=== PATIENT | male | born 1960 | race Caucasian/White ===

== ENCOUNTER 2017-06-10 10:30 | Outpatient (RCR) | payer OTHER, SELFPAY | END 2017-06-10 23:59 | LOC: PT 10:30 | PROVIDERS: Family Provider Family Medicine; Visit Provider Orthopaedic Surgery | DX: M75.21 Bicipital tendinitis, right shoulder (principal) | CPT/HCPCS: 97014; 97016; 97110; G0283 ==

== ENCOUNTER 2017-06-10 10:30 | Outpatient (RCR) | payer OTHER, SELFPAY | END 2017-06-10 23:59 | LOC: PT 10:30 | PROVIDERS: Visit Provider Orthopaedic Surgery | DX: M75.21 Bicipital tendinitis, right shoulder (principal) | CPT/HCPCS: 97161 ==

== ENCOUNTER → 2017-08-08 14:44 | Outpatient (CLI) | payer OTHER, SELFPAY ==
--- NOTE | 2017-08-08 | MM_ITS ---
MM Dig mamm BI DX w/CAD, US breast LT complete COMPARISON: None INDICATION: Palpable nodule the left breast ORDERING PHYSICIAN: Slim Gutierrez PATIENT AGE: 57 years TECHNIQUE: Standard images are performed along with nipple profile view of the left breast. Left breast ultrasound with axilla FINDINGS: Initially the ultrasound was performed for the palpable nodule demonstrating increased glandularity. There was some decreased echogenicity in the retroareolar region with increased blood flow. For this reason a mammogram was performed. Bilateral mammogram: Increased density is present in the retroareolar region on the left. This does appear to compress out as fibroglandular tissue consistent with gynecomastia. No discrete retroareolar nodule or mass evident. IMPRESSION: Gynecomastia the left breast no evidence of malignancy. BI-RADS Category: 2 Benign Finding(s) Follow-up as clinically warranted. Negative mammogram negative ultrasound does not exclude the possibility of malignancy. Any palpable nodule should be managed on a clinical basis.
== END ==
PROVIDERS: Family Provider Family Medicine; PCP Family Medicine; Visit Provider Family Medicine
DX: N63.20 Unspecified lump in the left breast, unspecified quadrant (principal); N64.4 Mastodynia
CPT/HCPCS: 76641; 77066

== ENCOUNTER 2017-09-07 21:38 | Observation (INO) | payer OTHER, SELFPAY ==
[2017-09-07 21:39] VITALS: BP 113/73; PULSE 98; RESP 16; TEMP 36.9; O2SAT 100; BMI 26.4
[2017-09-07 21:40] VITALS: BMI 26.4
--- NOTE | 2017-09-07 21:49 | CT_ITS ---
CT head/brain wo con Ordering Physician: Yemi Chisholm MD Patient Age: 57 years: Male HISTORY: ITS.REASON: acting different Mental status change. Patient found on floor difficult to awaken TECHNIQUE: Routine axial CT head without contrast. COMPARISON :No previous studies for comparison FINDINGS No acute intracranial findings. No hemorrhage. No mass. No subdural collection. The ventricles and basal cisterns appear normal. The posterior fossa is unremarkable. Skull is intact and visualized paranasal sinuses clear. Mastoid air cells middle air and IACs unremarkable IMPRESSION: No acute intracranial findings.
[2017-09-07 21:53] LABS: Basophils % 0.4 % (0.1-2.0); Eosinophils # 0.1 K/mm3 (0.0-0.4); Eosinophils % 0.8 % (0.1-12.0); Hemoglobin 13.3 g/dL (14.1-18.0); Lymphocytes # 2.6 K/mm3 (0.7-4.5); Lymphocytes % 39.8 K/mm3 (10-50); Mean Corpuscular Hemoglobin 29.9 pg (27.0-31.2); Mean Corpuscular Volume 87.8 fl (80-94); Mean Platelet Volume 8.2 fl (7.4-10.4); Monocytes # 0.7 K/mm3 (0.1-1.0); Neutrophils # 3.2 K/mm3 (1.8-7.8); Platelet Count 237 K/mm3 (142-424); Red Blood Count 4.44 M/mm3 (4.60-6.20); Red Cell Distribution Width 12.5 % (11.5-17.5); White Blood Count 6.5 K/mm3 (4.8-10.8)
[2017-09-07 22:04] LABS: Acetaminophen 0 ug/mL (10-30); Alanine Aminotransferase 49 U/L (12-78); Albumin Level 3.8 gm/dL (3.4-5.0); Albumin/Globulin Ratio 1.1 (1.1-1.8); Alkaline Phosphatase 82 U/L (46-116); Anion Gap 12.1 mEq/L (5-15); Aspartate Amino Transferase 27 U/L (15-37); Bilirubin,Total 0.3 mg/dL (0.2-1.0); Blood Urea Nitrogen 21 mg/dL (7-18); Calcium 8.7 mg/dL (8.5-10.1); Carbon Dioxide 29 mmol/L (21.0-32.0); Chloride 99 mmol/L (98-107); Creatinine Clearance Estimated 83 mL/min (0-300); Creatinine,Serum 1.25 mg/dL (0.70-1.30); Estimated Glomerular Filt Rate 59 ml/min (>60); GFR (African American) 72 ML/MIN (>60); Globulin 3.6 gm/dl (1.3-3.2); Glucose 115 mg/dL (74-106); Potassium 4.1 mmoL/L (3.5-5.1); Salicylate 2.1 mg/dL (2.8-20.0); Sodium 136 mmol/L (136-145); Total Protein,Serum 7.4 gm/dL (6.4-8.2)
[2017-09-07 22:04] LABS: Microscopic, Urine URINE MICROSCOPIC (MICROSCOPIC)
[2017-09-07 22:08] LABS: Appearance,Urine CLEAR (Clear); Bilirubin,Urine Negative (Negative); Blood, Urine TRACE-L (Negative); Color,Urine YELLOW (Yellow); Glucose,Urine (UA) Negative (Negative); Ketones,Urine TRACE (Negative); Leukocyte Esterase,Urine Negative (Negative); Nitrate,Urine Negative (Negative); Protein,Urine Negative (Negative); Specific Gravity, Urine 1.025 (1.005-1.030); Urobilinogen,Urine 0.2 EU/dl (0.2)
[2017-09-07 22:10] LABS: Amorphous Sediment,Urine Trace /lpf; RBC,Urine Occasional #/hpf (0-3)
[2017-09-07 22:13] LABS: Amphetamine/Metha Screen,Urine Negative ng/mL (<1000); Barbiturates Screen,Urine Negative ng/mL (<200); Benzodiazepines Screen,Urine Negative ng/mL (200); Cannabinoid Screen,Urine Negative ng/mL (<50); Cocaine Screen,Urine Negative ng/g (<300); Methadone Screen,Urine Negative ng/mL (<300); Opiate Screen,Urine Negative ng/mL (<300); Phencyclidine Screen,Urine Negative ng/mL (<25)
--- NOTE | 2017-09-07 23:24 | PC.NURSE ---
Dr Chisholm on with Dr. Hayes.
--- NOTE | 2017-09-07 23:26 | HMH.EDAMS ---
ED Disposition Clinical Impression: Altered mental status Qualifiers: Altered mental status type: unspecified Qualified Code(s): R41.82 - Altered mental status, unspecified Disposition: Admitted As Inpatient Condition on Discharge: Good Time of Disposition: 23:27 - Critical Care Critical Care Time: No Attestation: On 09/07/17, the high probability of a clinically significant, sudden or life threatening deterioration of the following system(s) required my full and direct attention, intervention and personal management. The time I documented below is in addition to time spent performing reported procedures but includes the following listed in this critical care notation. Medical Decision Making - Medical Records Medical records reviewed: Yes: I reviewed the patient's medical records. - Primo Inquiry Pt receiving controlled substance: No Vital Signs: 09/07/17 21:39 09/08/17 00:50 09/08/17 01:10 Temperature 98.4 F 98.4 F 98.3 F Temperature Source Oral Oral Oral Pulse Rate 90 Pulse Rate [Left Radial] 98 H 89 Respiratory Rate 16 16 16 Blood Pressure 122/68 Blood Pressure [Left Arm] 111/74 Blood Pressure [Right Arm] 113/73 Blood Pressure Mean [Left Arm] 86 Blood Pressure Mean [Right Arm] 86 Blood Pressure Source Automatic Cuff Blood Pressure Source [Left Arm] Automatic Cuff Blood Pressure Source [Right Arm] Automatic Cuff Blood Pressure Position Supine Blood Pressure Position [Left Arm] Supine Blood Pressure Position [Right Arm] Supine 02 Sat by Pulse Oximetry 100 95 Oxygen Delivery Method Room Air Room Air Room Air - Lab Data Lab results reviewed: Yes: I reviewed the patient's lab results. Lab Results 09/07/17 21:40: WBC 6.5, RBC 4.44 L, Hgb 13.3 L, Hct 39.0 L, MCV 87.8, MCH 29.9, MCHC 34.0, RDW 12.5, Plt Count 237, MPV 8.2, Neut % (Auto) 49.0, Lymph % (Auto) 39.8, Addison % (Auto) 10.0 H, Eos % (Auto) 0.8, Baso % (Auto) 0.4, Neut # (Auto) 3.2, Lymph # (Auto) 2.6, Addison # (Auto) 0.7, Eos # (Auto) 0.1, Baso # (Auto) 0.0 09/07/17 21:40: Sodium 136, Potassium 4.1, Chloride 99, Carbon Dioxide 29, Anion Gap 12.1, BUN 21 H, Creatinine 1.25, Estimated Creat Clear 83, Estimated GFR 59, Est GFR ( Amer) 72, Glucose 115 H, Calcium 8.7, Total Bilirubin 0.3, AST 27, ALT 49, Alkaline Phosphatase 82, Total Protein 7.4, Albumin 3.8, Globulin 3.6 H, Albumin/Globulin Ratio 1.1, Salicylates 2.1 L, Acetaminophen 0 L 09/07/17 21:55: Urine Color Yellow, Urine Appearance Clear, Urine pH 6.0, Ur Specific [place] 1.025, Urine Protein Negative, Urine Glucose (UA) Negative, Urine Ketones Trace, Urine Blood Trace-l, Urine Nitrate Negative, Urine Bilirubin Negative, Urine Urobilinogen 0.2, Ur Leukocyte Esterase Negative, Urine RBC Occasional, Amorphous Sediment Trace 09/07/17 21:55: Urine Opiates Screen Negative, Ur Barbituates Screen Negative, Ur Phencyclidine Scrn Negative, Ur Amphetamines Screen Negative, U Methamphetamines Scrn Negative, U Benzodiazepines Scrn Negative, Urine Cocaine Screen Negative, U Marijuana (THC) Screen Negative Result diagrams: 09/07/17 21:40 09/07/17 21:40 Orders (Tests/Meds): ED MEDICATIONS Generic Name Dose Route Start Last Admin Trade Name Freq PRN Reason Stop Dose Admin Acetaminophen 500 mg 09/08/17 01:43 Tylenol 500mg Tablet PO 10/08/17 01:42 Q4HP PRN Moderate Pain Atorvastatin Calcium 10 mg 09/08/17 21:00 Lipitor 10mg Tablet PO 10/08/17 20:59 HS CONRADO Lactated Ringer's 1,000 mls @ 125 mls/hr 09/08/17 01:43 09/08/17 01:45 Lactated Ringer's 1000 Ml Bag IV 10/08/17 00:53 125 mls/hr .Q8H CONRADO Administration Ketorolac Tromethamine 30 mg 09/08/17 01:43 09/08/17 01:48 Toradol 30mg/Ml Vial IV 10/08/17 01:42 30 mg Q6H PRN Administration Moderate Pain Non-Formulary Medication 1 tab 09/08/17 09:00 Lisinopril/Hydrochlorothiazide [Lisinopril-Hctz 20-25 Mg Tab] PO 10/08/17 08:59 DAILY CONRADO Non-Formulary
[2017-09-08 00:50] VITALS: BP 122/68; PULSE 90; RESP 16; TEMP 36.9; O2SAT 100
[2017-09-08 01:10] VITALS: BP 111/74; PULSE 89; RESP 16; TEMP 36.8; O2SAT 95; BMI 28.5
--- NOTE | 2017-09-08 03:24 | PC.NURSE ---
C/O CRANE AND TEARFUL ON ADMISSION, TORADOL AND TYLENOL ADMINISTERED PER AUG. PT REPORTS A LITTLE HELP WITH TORADOL PT STATES MY CRANE IS PRETTY BAD STILL. , TYLENOL WAS ADMINISTERED IN ADDITION, WILL REASSESS RELIEF OF CRANE WITH ADMINISTRATION OF TYLENOL. PT REPORTED NOT EATING SINCE 1200, GLUCOSE WAS NOTED 115 PER LAB RESULTS. NEURO CHECK DOCUMENTED PER ORDER. VSS. WILL CONTINUE TO MONITOR.
[2017-09-08 03:45] VITALS: BP 101/72; PULSE 89; RESP 16; TEMP 37; O2SAT 96
--- NOTE | 2017-09-08 05:21 | PC.NURSE ---
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 PT IS TEARFUL AT THIS TIME AND STATING YOU HAVE TO DO SOMETHING. RN PERFORMED NEURO CHECK AT THIS TIME, NO DEFICITS NOTED. PRN PAIN MEDICATIONS ARE NOT AVAILABLE FOR ADMINISTRATION, VSS ON 0400 VS ROUND. PT PROVIDED WITH ICE PACK. RN NOTES VS, LABS, SCANS ARE NORMAL. RN/HOUSE DID NOTE ER REPORT STATING PT TAKING 5 TABS OF SOMA WITHIN A HOUR AND A HALF TIME FRAME, WHEN PRESCRIPTION STATES TO TAKE ONE SOMA TAB TID. PT REPORTS TAKING 3/5 TABS AT 1500 THEN AGAIN TOOK 2/5 TABS AT 1630 FOR BACK SPASMS. PT STATES I HAVE DONE THIS BEFORE BUT DIDN'T HAVE A CRANE LIKE THIS. I JUST FELL ON THE FLOOR COULDN'T GET UP, SO I HAD TO CALL EMS TO HELP. POISON CONTROL NOTIFIED AT 0429, INFORMATION WAS GIVEN TO LESVIA DOMINIQUE. LESVIA DOMINIQUE REPORTED THAT THE SOMA SHOULD BE OUT OF THE PATIENT'S SYSTEM AT THIS TIME. RN WENT TO CHECK ON PT AND NOTED ICE PACK WAS LYING ON THE FLOOR. PT STATED I DON'T WANT THAT ICE PACK. IT'S NOT HELPING ME AT ALL. IF I DON'T GET SOMETHING TO HELP ME I AM JUST GOING TO LEAVE. RN AND DIRECTOR [facility] SPOKE WITH PT IN REGARDS TO IMPORTANCE OF STAYING. DR. ALFONSO PAGED AT THIS TIME. RN IS STILL AWAITING CALL FROM DR. ALFONSO. WILL CONTINUE TO MONITOR PT CONDITION.
--- NOTE | 2017-09-08 07:16 | PC.NURSE ---
DR. ALFONSO GAVE VO ORDER FOR ONE TIME DOSE OF TYLENOL 650 MG PO ONE TIME ONLY. ORDERED VERIFIED AND REPEATED WITH .
--- NOTE | 2017-09-08 07:26 | PC.NURSE ---
REPORT GIVEN TO Stacy DOYLE W/C
--- NOTE | 2017-09-08 07:48 | HMH.PHAVTE ---
[facility] Pharmacy VTE Monitoring - Patient Demographics Admission date: 09/08/17 Report Date: 09/08/17 Time: 07:48 Allergies/Adverse Reactions: Patient Allergies No Known Allergies Allergy (Unverified 05/27/17 14:52) Height: 1.83 m Weight: 95.254 kg Patient Problems: Current Active Problems Altered mental status (Acute) - VTE Risk Labs: VTE Related Lab Results Hgb 13.3 g/dL (14.1-18.0) L 09/07/17 21:40 Hct 39.0 % (42.0-52.0) L 09/07/17 21:40 Plt Count 237 K/mm3 (142-424) 09/07/17 21:40 BUN 21 mg/dL (7-18) H 09/07/17 21:40 Creatinine 1.25 mg/dL (0.70-1.30) 09/07/17 21:40 Estimated Creat Clear 83 mL/min (0-300) 09/07/17 21:40 Was VTE Risk Assessment Performed: Yes VTE Score: 2 - Prophylaxis VTE Prophylaxis Ordered?: Yes Types of VTE Prophylaxis: TEDS Knee High - VTE Diagnosis Confirmed Treatment or plan recommended: Continue Current Treatment
[2017-09-08 07:51] VITALS: BP 122/81; PULSE 79; RESP 16; TEMP 36.4; O2SAT 97
--- NOTE | 2017-09-08 08:11 | HMH.HPDC ---
General - General Admission date: 09/08/17 Discharge date: 09/08/17 *Admission Date: 09/08/17 *Chief complaint: Unintentional drug overdose *History of present illness: 57-year-old white male, patient of Dr. Gutierrez in [place], who suffers from bipolar disorder, who was at his home yesterday afternoon and apparently had been left at home by his for an hour or 2 and when she returned he was on the bathroom floor with limited level of consciousness and poor responsiveness. He was brought to the emergency department. As he awoke and began to be able to communicate, he informed the ER staff that his shoulder was hurting so he took 5 tablets of a soma product and then had the reaction of hypersomnolence and poor responsiveness. He denied any intention to harm himself, denied any other substance use or misuse in the recent past. Workup included metabolic testing of CMP/CBC/drug screen and CT scan of head was essentially unremarkable. The patient complained of dizziness in the ER and stated that he did not want to go home. As result he was admitted observation overnight on the [facility] [place] [place] unit. [facility] History I have reviewed the patient's past medical history: Yes Medical History: Reports:: Diabetes Mellitus Type 2 Denies:: Cancer, Diabetes Mellitus Type 1, MRSA Comment: Of note patient refuses to discuss his history or details with me this morning Amputation: No Fractures: No - *Social History Educational Level: Completed Grade School Smoking Status: Never smoker Alcohol Intake: never Occupational Status: unemployed Housing: house Household Members: significant other - Psychiatric History Expresses thoughts of harming self/others: None Suicide Plan Description: No Plan Pschychiatric History:: Reports:: Bipolar Disorder *Family Hx:: Non-contributory Review of Systems - Review of Systems Review of systems unobtainable secondary to patient refusal to talk to me - *Neurologic Reports dizziness, Reports tremor(s), Reports weakness (Generalized) Exam Vital signs and Labs for Last 24 Hours: Temp Pulse Resp BP Pulse Ox 97.6 F 79 16 122/81 97 09/08/17 07:51 09/08/17 07:51 09/08/17 07:51 09/08/17 07:51 09/08/17 07:51 I & O for Last 24 hours: Intake & Output 09/05/17 09/06/17 09/07/17 09/08/17 11:59 11:59 11:59 11:59 Intake Total 360 / 360 Balance 360 / 360 Weight 210 lb Narrative: Patient's vital signs unremarkable. When I entered the room he appeared well, alert, appeared to be oriented. When I introduced myself he stated firmly I have nothing to say to you. And then rolled over and covered himself with his blanket. From underneath a blanket he voiced his desire that I leave his room immediately. He reported that he did not wish to see me and that he wanted to go home anytime. Did not allow me to do any kind of physical exam or further history taking. Hospital Course Hospital Course: Patient was observed overnight, had no further neurologic episodes per nursing staff, vital signs have been unremarkable. No further abnormalities noted. Patient complained of a headache and was given Tylenol with some relief. Patient's refusal for examination and treatment at this point he will be discharged home to resume his normal follow-up and medications. DS: Diagnosis - Discharge Diagnosis (1) Overdose Status: Acute (2) Altered mental status Status: Chronic Discharge Medications Discharge Medications: Home Medications Medication Instructions Recorded Confirmed Type Atorvastatin Calcium [Atorvastatin 10 mg PO HS 09/07/17 09/08/17 History 10mg Tab] Carisoprodol [Soma 350mg tablet] 350 mg PO TIDP PRN 09/07/17 09/08/17 History Lisinopril/Hydrochlorothiazide 1 tab PO DAILY 09/07/17 09/08/17 History [Lisinopril-Hctz 20-25 mg Tab] Metformin HCl [Metformin HCl] 1,000 mg PO BID 09/07/17 09/08/17 History risperiDONE [Risperidone] 0.5 mg PO HS 09/07/17 09/08/17 History
--- NOTE | 2017-09-08 08:14 | P.HPDS_ITS ---
General - General Admission date: 09/08/17 Discharge date: 09/08/17 *Admission Date: 09/08/17 *Chief complaint: Unintentional drug overdose *History of present illness: 57-year-old white male, patient of Dr. Gutierrez in [place], who suffers from bipolar disorder, who was at his home yesterday afternoon and apparently had been left at home by his for an hour or 2 and when she returned he was on the bathroom floor with limited level of consciousness and poor responsiveness. He was brought to the emergency department. As he awoke and began to be able to communicate, he informed the ER staff that his shoulder was hurting so he took 5 tablets of a soma product and then had the reaction of hypersomnolence and poor responsiveness. He denied any intention to harm himself, denied any other substance use or misuse in the recent past. Workup included metabolic testing of CMP/CBC/drug screen and CT scan of head was essentially unremarkable. The patient complained of dizziness in the ER and stated that he did not want to go home. As result he was admitted observation overnight on the [facility] [place] unit. [facility] History I have reviewed the patient's past medical history: Yes Medical History: Reports:: Diabetes Mellitus Type 2 Denies:: Cancer, Diabetes Mellitus Type 1, MRSA Comment: Of note patient refuses to discuss his history or details with me this morning Amputation: No Fractures: No - *Social History Educational Level: Completed Grade School Smoking Status: Never smoker Alcohol Intake: never Occupational Status: unemployed Housing: house Household Members: significant other - Psychiatric History Expresses thoughts of harming self/others: None Suicide Plan Description: No Plan Pschychiatric History:: Reports:: Bipolar Disorder *Family Hx:: Non-contributory Review of Systems - Review of Systems Review of systems unobtainable secondary to patient refusal to talk to me - *Neurologic Reports dizziness, Reports tremor(s), Reports weakness (Generalized) Exam Vital signs and Labs for Last 24 Hours: Temp Pulse Resp BP Pulse Ox 97.6 F 79 16 122/81 97 09/08/17 07:51 09/08/17 07:51 09/08/17 07:51 09/08/17 07:51 09/08/17 07:51 I & O for Last 24 hours: Intake & Output 09/05/17 09/06/17 09/07/17 09/08/17 11:59 11:59 11:59 11:59 Intake Total 360 / 360 Balance 360 / 360 Weight 210 lb Narrative: Patient's vital signs unremarkable. When I entered the room he appeared well, alert, appeared to be oriented. When I introduced myself he stated firmly I have nothing to say to you. And then rolled over and covered himself with his blanket. From underneath a blanket he voiced his desire that I leave his room immediately. He reported that he did not wish to see me and that he wanted to go home anytime. Did not allow me to do any kind of physical exam or further history taking. Hospital Course Hospital Course: Patient was observed overnight, had no further neurologic episodes per nursing staff, vital signs have been unremarkable. No further abnormalities noted. Patient complained of a headache and was given Tylenol with some relief. Patient's refusal for examination and treatment at this point he will be discharged home to resume his normal follow-up and medications. DS: Diagnosis - Discharge Diagnosis (1) Overdose Status: Acute (2) Altered mental status Status: Chronic Discharge Medications Discharge
[2017-09-08 20:37] LABS: POC Glucose,Bedside 136 mg/dL (70-110)
== END 2017-09-08 09:30 | disposition home or self-care (01) ==
LOC: ER 23:27 → 2ND 09-08 01:16
PROVIDERS: Admitting Provider Internal Medicine Adolescent Medicine; Emergency Provider Emergency Medicine; Family Provider Family Medicine; PCP Family Medicine; Visit Provider Internal Medicine Adolescent Medicine
DX: T39.1X1A Poisoning by 4-Aminophenol derivatives, accidental (unintentional), initial encounter (principal); R41.82 Altered mental status, unspecified; Y92.009 Unspecified place in unspecified non-institutional (private) residence as the place of occurrence of the external cause; M25.512 Pain in left shoulder; E11.9 Type 2 diabetes mellitus without complications; F31.9 Bipolar disorder, unspecified; R51 Headache; Z79.899 Other long term (current) drug therapy; Z79.84 Long term (current) use of oral hypoglycemic drugs
CPT/HCPCS: 70450; 80053; 80305; 80329; 81001; 82962; 85025; 96365; 96366; 96375; 99284; G0378; J2405

== ENCOUNTER → 2018-02-19 07:45 | Outpatient (CLI) | payer OTHER, SELFPAY ==
--- NOTE | 2018-02-19 07:50 | MR_ITS ---
MR lumbar spine wo con, MR 3-d myelogram/MRCP HISTORY: PT states left side low back pain X 3 months or so. LT leg pain as well. ITS.REASON: LOW BACK PAIN ORDERING PHYSICIAN: Slim Gutierrez PATIENT AGE: 57 years Comparison: 05/30/09 TECHNIQUE: Standard multiplanar multiecho sequences are performed without contrast. 3-D MIP and myelographic images are also rendered and reviewed FINDINGS: There is slight reversal of the thoracic lumbar lordosis with normal alignment. The spinal cord ends at the L1 level T11-T12: Mild degenerative disc disease with mild ligamentum flavum hypertrophy. T12-L1: Degenerative disc disease. L1-L2: Degenerative disc disease with moderate to severe left-sided foraminal narrowing from facet and ligamentum flavum hypertrophy. There is mild retrolisthesis of L1 on L2 of 3 mm. L2-L3: Mild facet and ligamentum flavum hypertrophic change. L3-L4: Mild degenerative disc disease with mild concentric bulging disc. 3 mm anterolisthesis of L3. Moderate to severe facet and ligamentum flavum hypertrophy at this level with canal stenosis, severe bilateral lateral recess narrowing, and moderate to severe right foraminal narrowing as well as moderate left foraminal narrowing. L4-5: Mild concentric bulging disc along with mild facet and ligamentum hypertrophy. L5-S1: Severe degenerative disc disease with bulging disc and mild facet ligamentum flavum hypertrophy with moderate left-sided foraminal narrowing. IMPRESSION: 1. Multilevel lumbar spondylosis with degenerative disc disease along with facet ligamentum flavum hypertrophy and bulging disc with lateral recess and foraminal narrowing. Please see above for detailed description at each level. 2. Mild degenerative disc disease at L3-L4 with mild concentric bulging disc. 3 mm anterolisthesis of L3. Moderate to severe facet and ligamentum flavum hypertrophy at this level with canal stenosis, severe bilateral lateral recess narrowing, and moderate to severe right foraminal narrowing as well as moderate left foraminal narrowing
== END ==
PROVIDERS: Family Provider Family Medicine; PCP Family Medicine; Visit Provider Family Medicine
DX: M54.5 Low back pain (principal)
CPT/HCPCS: 72148; 76376

== ENCOUNTER 2018-08-27 10:00 | Outpatient (RCR) | payer OTHER, SELFPAY | END 2018-08-27 10:05 | disposition home or self-care (01) | LOC: PT 10:00 | PROVIDERS: Visit Provider Anesthesiology Pain Medicine | DX: M54.16 Radiculopathy, lumbar region (principal) | CPT/HCPCS: 97014; 97110; 97163; G0283 ==

== ENCOUNTER → 2019-03-23 09:13 | Outpatient (POV) | payer OTHER, SELFPAY | PROVIDERS: Visit Provider Dermatology | DX: Z00.00 Encounter for general adult medical examination without abnormal findings (principal) ==

== ENCOUNTER 2020-04-22 20:33 | Emergency (ER) | payer OTHER, SELFPAY ==
[2020-04-22 20:49] VITALS: BP 147/77; PULSE 80; RESP 19; TEMP 36.6; O2SAT 98; BMI 28.5
--- NOTE | 2020-04-22 20:54 | HMH.EDUTC ---
[facility] Disposition Clinical Impression: Exposure to COVID-19 virus Disposition: Home, Self-Care Condition on Discharge: Good Instructions: Sore Throat, Preventing the Spread of Coronavirus Discharge Instructions Additional Instructions: *Monitor Temp, Over the counter Motrin or Tylenol as directed/as needed Tylenol every 4 hours and Motrin every 6 hours (as long as your family doctor has told you that you can take it) for fever or pain. and straight to ER if unable to lower temp less than 101.0 after medication given *Warm salt water gargles may help to soothe the throat *Throat Lozenges *Warm fluids like tea with honey may help to soothe the throat *Sleep elevated *Humidifier/Vaporizer *Flonase 2 sprays in each nostril daily but be aware that it may take 2-3 days before you notice improvement Follow up IMMEDIATELY for new or worsening symptoms or no Noticeable improvement over the next 48-72 hours. 911 for difficulty breathing or swallowing You was tested for today for COVID19 your test result should be back in the next 24-48 hours, you may call to the [facility] tomorrow to see if your test results are back and the result [phone] You was given a handout with instructions for Self Quarantine and Self isolation for while you wait on test results and what to do if they are positive If you are positive the Health Dept will be contacting you also Referrals: Slim Gutierrez [Primary Care Provider] - As needed Time of Disposition: 21:02 Medical Decision Making - Primo Inquiry Pt receiving controlled substance: No Primo was queried for this patient: No Vital Signs: 04/22/20 20:49 Temperature 97.8 F Temperature Source Oral Pulse Rate [Radial] 80 Respiratory Rate 19 Blood Pressure [Right Arm] 147/77 H Blood Pressure Mean [Right Arm] 100 Blood Pressure Source [Right Arm] Automatic Cuff Blood Pressure Position [Right Arm] Sitting 02 Sat by Pulse Oximetry 98 Oxygen Delivery Method Room Air Orders (Tests/Meds): ORDERS Category Date Time Status Covid-19 Nasal PCR ([facility]) Routine Lab 04/22/20 20:41 Received [facility] HPI - General Stated complaint: Cough, sore throat Time Seen by Provider: 04/22/20 20:54 Mode of Arrival: Ambulatory Source of Information: Patient Limitations: No Limitations Description of Symptoms (Recalled from Triage Doc. by RN): COVID TEST, BODY ACHES, COUGH HEENT Symptoms (Recalled from RN notes): Yes Resp Symptoms (Recalled from RN notes): No Skin Symptoms (Recalled from RN notes): No MS Symptoms (Recalled from RN notes): No Functional Status (Recalled from RN notes): WNL - History of Present Illness Provider Complaint: Patient state that and son tested positive for COVID earlier today and for the last couple of days he has been having body aches, chills and runny nose and he is wanting to get tested also - Related Data Home Medications Medication Instructions Recorded Confirmed Atorvastatin Calcium [Lipitor 10mg 10 mg PO HS 09/07/17 09/08/17 Tab] Lisinopril/Hydrochlorothiazide 1 tab PO DAILY 09/07/17 09/08/17 [Lisinopril-Hctz 20-25 mg Tab] Metformin HCl 1,000 mg PO BID 09/07/17 09/08/17 carisoprodoL [Soma 350mg tablet] 350 mg PO TIDP PRN 09/07/17 09/08/17 risperiDONE [Risperidone] 0.5 mg PO HS 09/07/17 09/08/17 Tramadol HCl [Ultram 50mg 25 - 50 mg PO TIDP PRN 09/08/17 09/08/17 tablet] Previous Rx's Medication Instructions Recorded Sitagliptin Phosphate [Januvia 100 mg PO DAILY #30 tab 11/11/18 100mg tablet] Allergies Allergy/AdvReac Type Severity Reaction Status Date / Time No Known Allergies Allergy Unverified 05/27/17 14:52 - Worker's Comp Is this a Worker's Comp case?: No [facility] History - Hepatitis A Screen Drug use history?: No High risk sexual behaviors?: No History of sexually transmitted infection?: No Currently employed?: No Childcare worker?: No Do you have indoor plumbing?: Yes Do you have electricity?: Yes Attestation
[2020-04-22 21:06] VITALS: BP 147/77; PULSE 80; RESP 19; TEMP 36.6; O2SAT 98
--- NOTE | 2020-04-23 00:17 | PC.NURSE ---
Positive COVID results reported @ 1698
== END 2020-04-22 21:08 | disposition home or self-care (01) ==
PROVIDERS: Emergency Provider Nurse Practitioner; PCP Family Medicine
DX: U07.1 COVID-19 (principal); I10 Essential (primary) hypertension; E78.5 Hyperlipidemia, unspecified; E11.9 Type 2 diabetes mellitus without complications; Z79.899 Other long term (current) drug therapy
CPT/HCPCS: 99201; U0003

== ENCOUNTER 2020-04-27 22:11 | Emergency (ER) | payer OTHER, SELFPAY ==
[2020-04-27 22:10] VITALS: BP 152/101; PULSE 76; RESP 15; TEMP 37.2; O2SAT 95; BMI 27.1
--- NOTE | 2020-04-27 22:17 | CT_ITS ---
PROCEDURE: CT CERVICAL SPINE WO CON CLINICAL INDICATION: pulled his back Neck injury with pain, contusion/abrasion or hematoma, cervical sprain/strain, severe neck pain COMPARISON: No exams were available for comparison TECHNIQUE: Axial images obtained with sagittal and coronal reformats. All CT scans at the facility use one or more dose reduction, viz: automated exposure control, ma/kV adjustment per patient size (including targeted exams where dose is matched to indication, i.e. head), or iterative reconstruction technique. Axial spiral CT scanning performed of the cervical spine beginning at the base of the skull and continuing to the upper T-spine. 3-D multiplanar reconstruction with 3-D manipulation of volumetric data set in image rendering was completed by the radiologist and/or technologist with the supervision of the radiologist on independent workstation. FINDINGS: There is straightening of the cervical lordosis. Patient's head is rotated toward the left. No fracture or dislocation. Mild multilevel cervical spondylosis is present. C2-C3: Degenerative disc disease. C3-C4: Degenerative disc disease with endplate ridging with canal stenosis . Mild bilateral foraminal narrowing. C4-C5: Degenerate disc disease with canal stenosis with bilateral lateral recess and foraminal narrowing. C5-C6: Degenerative disc disease with endplate osteophytes with canal stenosis and bilateral lateral recess and foraminal narrowing. The canal I measures approximately 7 mm at this level. C6-C7: Degenerative disc disease with endplate hypertrophic change in the left paracentral and foraminal disc osteophyte complex. There is canal stenosis with bilateral lateral recess and foraminal narrowing which is more severe on the left secondary to the disc osteophyte complex. C7-T1: Unremarkable. Scattered small nodes are present in the neck. The lung apices are clear. IMPRESSION: Multilevel cervical spondylosis with degenerative disc disease, endplate osteophytes, canal stenosis with bilateral lateral recess and foraminal narrowing. Please see above for detailed description at each level No acute fracture Dictated by: Gera Knowles MD 04/28/2020 06:08 Gera Knowles MD in [facility] 04/28/2020 06:08
--- NOTE | 2020-04-27 22:18 | CT_ITS ---
PROCEDURE: CT THORACIC SPINE WO CON CLINICAL HISTORY: injured back pulling on a deer Posttraumatic pain, severe back pain COMPARISON: No exams were available for comparison TECHNIQUE: Axial images obtained with sagittal and coronal reformats. All CT scans at the facility use one or more dose reduction, viz: automated exposure control, ma/kV adjustment per patient size (including targeted exams where dose is matched to indication, i.e. head), or iterative reconstruction technique. FINDINGS: There is normal alignment. No acute fracture or dislocation evident. No lytic or blastic change. There is mild multilevel thoracic spondylosis. Incidental note is made of coronary artery calcifications. The visualized lung walsh are clear IMPRESSION: No acute fracture. Mild thoracic spine spondylosis Dictated by: Gera Knowles MD 04/28/2020 06:11 Gera Knowles MD in [facility] 04/28/2020 06:11
--- NOTE | 2020-04-27 22:18 | CT_ITS ---
PROCEDURE: CT LUMBAR SPINE WO CON CLINICAL HISTORY: injured back pulling on a deer Posttraumatic pain, injury with pain, severe back pain COMPARISON: No exams were available for comparison TECHNIQUE: Axial images obtained with sagittal and coronal reformats. All CT scans at the facility use one or more dose reduction, viz: automated exposure control, ma/kV adjustment per patient size (including targeted exams where dose is matched to indication, i.e. head), or iterative reconstruction technique. FINDINGS: There is normal alignment. No acute fracture or dislocation is evident. Mild multilevel lumbar spondylosis is present. T12-L1: Degenerative disc disease. L1-L2: Degenerative disc disease with bulging disc with retrolisthesis of L1 of approximately 3 mm. Endplate hypertrophic changes are present the. There is moderate to severe bilateral foraminal narrowing greater on the left secondary to broad-based left paracentral foraminal and lateral disc osteophyte complex on the left. L2-L3: Minimal bulging disc L3-L4: 3 mm anterolisthesis of L3. Prominent diffuse bulging disc with facet and ligamentum hypertrophy with canal stenosis and bilateral lateral recess and foraminal narrowing. Prominent facet and ligamentum hypertrophic change with canal stenosis. L4-5: Bulging disc along with facet ligamentum hypertrophy with bilateral lateral recess and foraminal narrowing. L5-S1: Degenerative disc disease with endplate hypertrophic change slightly eccentric toward the left with moderate bilateral lateral recess and foraminal narrowing. Small sclerotic focus is present in the ilium on the right nonspecific there is diverticulosis of the sigmoid colon. IMPRESSION: 1. No acute fracture. 2. Multilevel lumbar spondylosis with degenerative disc disease, bulging disc, facet ligamentum hypertrophy resulting in lateral recess and foraminal narrowing and canal stenosis. Please see above for detailed description at each level. Dictated by: Gera Knowles MD 04/28/2020 06:17 Gera Knowles MD in [facility] 04/28/2020 06:17
[2020-04-27 22:59] LABS: Chloride 101 mmol/L (98-107); Potassium 3.8 mmoL/L (3.5-5.1); Sodium 136 mmol/L (136-145)
[2020-04-27 23:02] LABS: Alanine Aminotransferase 24 U/L (12-78); Albumin Level 4.3 g/dl (3.5-5.0); Albumin/Globulin Ratio 1.5 (1.1-1.8); Alkaline Phosphatase 79 U/L (38-126); Anion Gap 10.8 mEq/L (5-15); Aspartate Amino Transferase 27 U/L (17-59); Bilirubin,Total 0.5 mg/dl (0.2-1.3); Blood Urea Nitrogen 18 mg/dl (9-20); Calcium 9.3 mg/dl (8.4-10.2); Carbon Dioxide 28 mmol/L (22.0-30.0); Creatinine Clearance Estimated 126 mL/min (50-200); Estimated Glomerular Filt Rate 99 ml/min (>60); GFR (African American) 119 ML/MIN (>60); Globulin 2.9 g/dL (1.3-3.2); Glucose 159 mg/dl (74-100); Total Protein,Serum 7.2 g/dl (6.3-8.2)
[2020-04-27 23:11] LABS: Basophils % 0.5 % (0.1-2.0); Eosinophils % 0.7 % (0.1-12.0); Lymphocytes # 2.7 K/mm3 (0.7-4.5); Lymphocytes % 46.6 % (10-50); Mean Corpuscular HGB Conc 34.9 g/dL (31.8-35.4); Mean Corpuscular Hemoglobin 29.8 pg (27.0-31.2); Mean Corpuscular Volume 85.4 fl (80-94); Mean Platelet Volume 8.3 fl (7.4-10.4); Monocytes # 0.6 K/mm3 (0.1-1.0); Monocytes % 10.7 % (1.7-9.3); Neutrophils # 2.4 K/mm3 (1.8-7.8); Neutrophils % 41.5 % (37.0-80.0); Platelet Count 253 K/mm3 (142-424); Red Blood Count 4.68 M/mm3 (4.60-6.20); Red Cell Distribution Width 13.2 % (11.5-17.5); White Blood Count 5.8 K/mm3 (4.8-10.8)
--- NOTE | 2020-04-27 23:23 | HMH.EDBACK ---
ED Disposition Clinical Impression: Lumbar radiculopathy Disposition: Home, Self-Care Condition on Discharge: Good Instructions: DI for Low Back Pain Additional Instructions: call pcp in am and use meds Prescriptions: Cyclobenzaprine HCl [Flexeril 10mg tablet] 10 mg PO TID 21 Days #90 tab Transmission Status: Pending to [facility] #[id number] predniSONE [Prednisone 20mg Tab] 20 mg PO BID #10 tab Transmission Status: Pending to [facility] #[id number] Referrals: Slim Gutierrez [Primary Care Provider] - - Critical Care Critical Care Time: No Attestation: On 04/27/20, the high probability of a clinically significant, sudden or life threatening deterioration of the following system(s) required my full and direct attention, intervention and personal management. The time I documented below is in addition to time spent performing reported procedures but includes the following listed in this critical care notation. Medical Decision Making - Medical Records Medical records reviewed: Yes: I reviewed the patient's medical records. - Primo Inquiry Pt receiving controlled substance: No Vital Signs: 04/27/20 22:10 Temperature 98.9 F Temperature Source Oral Pulse Rate [Right Brachial] 76 Respiratory Rate 15 Blood Pressure [right] 152/101 H Blood Pressure Mean [right] 118 Blood Pressure Source [right] Automatic Cuff Blood Pressure Position [right] Sitting 02 Sat by Pulse Oximetry 95 Oxygen Delivery Method Room Air - Lab Data Lab results reviewed: Yes: I reviewed the patient's lab results. Lab Results 04/27/20 22:45: WBC 5.8, RBC 4.68, Hgb 14.0 L, Hct 40.0 L, MCV 85.4, MCH 29.8, MCHC 34.9, RDW 13.2, Plt Count 253, MPV 8.3, Neut % (Auto) 41.5, Lymph % (Auto) 46.6, [place] % (Auto) 10.7 H, Eos % (Auto) 0.7, Baso % (Auto) 0.5, Neut # (Auto) 2.4, Lymph # (Auto) 2.7, [place] # (Auto) 0.6, Eos # (Auto) 0.0, Baso # (Auto) 0.0 04/27/20 22:45: Sodium 136, Potassium 3.8, Chloride 101, Carbon Dioxide 28, Anion Gap 10.8, BUN 18, Creatinine 0.80, Estimated Creat Clear 126, Estimated GFR 99, Est GFR ( Amer) 119, Glucose 159 H, Calcium 9.3, Total Bilirubin 0.5, AST 27, ALT 24, Alkaline Phosphatase 79, Total Protein 7.2, Albumin 4.3, Globulin 2.9, Albumin/Globulin Ratio 1.5 Result diagrams: 04/27/20 22:45 04/27/20 22:45 Orders (Tests/Meds): ED MEDICATIONS Discontinued Medications Generic Name Dose Route Start Last Admin Trade Name Freq PRN Reason Stop Dose Admin Diazepam 5 mg 04/27/20 23:38 04/27/20 23:48 Diazepam 10mg/2ml Syringe IV 04/27/20 23:39 5 mg ONCE ONE Administration Hydromorphone HCl 1 mg 04/28/20 00:07 Hydromorphone 2mg/Ml Syringe IV 04/28/20 00:08 ONCE ONE Ketorolac Tromethamine 30 mg 04/27/20 23:38 04/27/20 23:49 Ketorolac 30mg/Ml Vial IV 04/27/20 23:39 30 mg ONCE ONE Administration Methylprednisolone Sodium Succinate 125 mg 04/27/20 23:37 04/27/20 23:48 Methylprednisolone Sod Succ 125mg Vial IV 04/27/20 23:38 125 mg ONCE ONE Administration ORDERS Category Date Time Status CT cervical spine wo con Stat Cat Scan 04/27/20 22:[address] lumbar spine wo con Stat Cat Scan 04/27/20 22:[address] thoracic spine wo con Stat Cat Scan 04/27/20 22:18 Taken - CT Data CT Scan: C-Spine, T-Spine, L-Spine Time Received: 00:[address] Reviewed: Yes: I have viewed the radiologist's interpretation Preliminary Findings: Abnormal (see report ) Medical Decision Narrative: acute lumbar radicular pain - will ask pt to call pcp in am Back Pain HPI - General Chief Complaint: Back Pain/Injury Stated Complaint: back injury pulling on a deer Time Seen by Provider: 04/27/20 22:35 Mode of Arrival: EMS Source of Information: Patient, EMS, Medical Record Limitations: No Limitations Description of Symptoms (Recalled from ER Triage Doc. by RN): pt was pulling a deer up into his truck per his statement and felt his back pop ; has had progres
[2020-04-28 00:28] VITALS: BP 124/75; PULSE 81; RESP 18; TEMP 36.6; O2SAT 98
== END 2020-04-28 00:35 | disposition home or self-care (01) ==
PROVIDERS: Emergency Provider Emergency Medicine; PCP Family Medicine
DX: M54.16 Radiculopathy, lumbar region (principal); F31.9 Bipolar disorder, unspecified; E11.9 Type 2 diabetes mellitus without complications; I10 Essential (primary) hypertension; E78.5 Hyperlipidemia, unspecified; F17.210 Nicotine dependence, cigarettes, uncomplicated; Z79.899 Other long term (current) drug therapy
CPT/HCPCS: 72125; 72128; 72131; 80053; 85025; 96374; 96375; 99282

== ENCOUNTER 2020-05-24 08:58 | Outpatient (RCR) | payer OTHER, SELFPAY | END 2020-05-24 08:59 | disposition home or self-care (01) | LOC: OT 08:58 | PROVIDERS: PCP Nurse Practitioner Family; Visit Provider Physical Medicine & Rehabilitation | DX: M54.40 Lumbago with sciatica, unspecified side (principal) | CPT/HCPCS: 97165 ==

== ENCOUNTER 2020-05-30 13:00 | Outpatient (RCR) | payer OTHER, SELFPAY | END 2020-05-30 13:05 | disposition home or self-care (01) | LOC: PT 13:00 | PROVIDERS: PCP Nurse Practitioner Family; Visit Provider Physical Medicine & Rehabilitation | DX: M54.40 Lumbago with sciatica, unspecified side (principal); M54.16 Radiculopathy, lumbar region | CPT/HCPCS: 97010; 97014; 97035; 97110; 97163; G0283 ==

== ENCOUNTER → 2020-06-27 09:11 | Outpatient (POV) | payer OTHER, SELFPAY | PROVIDERS: Visit Provider Dermatology | DX: Z00.00 Encounter for general adult medical examination without abnormal findings (principal) ==

== ENCOUNTER → 2021-02-06 09:27 | Outpatient (CLI) | payer OTHER, MEDICARE, SELFPAY ==
--- NOTE | 2021-02-06 09:41 | XR_ITS ---
PROCEDURE: XR CHEST 2V CLINICAL HISTORY: CHEST PAIN Left-sided chest pain COMPARISON: CR Chest from 11/11/2018 FINDINGS: The cardiomediastinal silhouette and pulmonary vascularity are within normal limits. The lungs are clear without infiltrates, suspicious nodules, or pleural effusions. No acute bony abnormalities. IMPRESSION: No acute findings. Dictated by: Gera Knowles MD 02/06/2021 10:14 Gera Knowles MD in [facility] 02/06/2021 10:14
== END ==
PROVIDERS: PCP Internal Medicine; Visit Provider Internal Medicine
DX: R07.89 Other chest pain (principal)
CPT/HCPCS: 71046

== ENCOUNTER → 2021-02-07 09:04 | Outpatient (CLI) | payer OTHER, SELFPAY ==
--- NOTE | 2021-02-07 09:09 | US_ITS ---
PROCEDURE: US ABDOMEN COMPLETE CLINICAL INDICATION: ABD PAIN, LUQ PAIN COMPARISON: CT CT LUMBAR SPINE WO CON from 04/27/2020 FINDINGS: PANCREAS: Unremarkable. No obvious mass or abnormal fluid collection. No ductal dilatation LIVER: Diffuse increased echogenicity of the liver with poor through transmission of sound consistent with hepatic steatosis. No focal liver lesion demonstrated. There is appropriate direction of blood flow within non dilated portal vein. Liver is difficult to penetrate sonographically with very limited evaluation of the liver. RIGHT KIDNEY: Unremarkable. Normal size and echogenicity. No hydronephrosis LEFT KIDNEY: Unremarkable. Normal size and echogenicity. No hydronephrosis GALLBLADDER: Prior cholecystectomy. Common bile duct is normal at 3 mm. AORTA: Minimal ectasia of the mid abdominal aorta at 2.3 cm. SPLEEN: Unremarkable. Normal size and echogenicity ASCITES: None demonstrated. IMPRESSION: Fatty liver. No acute findings. Dictated by: Gera Knowles MD 02/07/2021 16:38 Gera Knowles MD in [facility] 02/07/2021 16:38
== END ==
PROVIDERS: PCP Internal Medicine; Visit Provider Internal Medicine
DX: R10.12 Left upper quadrant pain (principal)
CPT/HCPCS: 76700

== ENCOUNTER → 2021-02-13 14:18 | Outpatient (POV) | payer OTHER, SELFPAY | PROVIDERS: Visit Provider Dermatology | DX: Z00.00 Encounter for general adult medical examination without abnormal findings (principal) ==

== ENCOUNTER → 2021-03-09 16:04 | Outpatient (CLI) | payer OTHER, SELFPAY ==
[2021-03-09 16:27] LABS: Basophils % 0.5 % (0.1-2.0); Eosinophils % 0.4 % (0.1-12.0); Hematocrit 44.1 % (42.0-52.0); Hemoglobin 15.1 g/dL (14.1-18.0); Lymphocytes # 2.2 K/mm3 (0.7-4.5); Lymphocytes % 32.7 % (10-50); Mean Corpuscular HGB Conc 34.2 g/dL (31.8-35.4); Mean Corpuscular Hemoglobin 30.2 pg (27.0-31.2); Mean Corpuscular Volume 88.3 fl (80-94); Mean Platelet Volume 8.7 fl (7.4-10.4); Monocytes # 0.6 K/mm3 (0.1-1.0); Monocytes % 8.8 % (1.7-9.3); Neutrophils # 3.8 K/mm3 (1.8-7.8); Neutrophils % 57.6 % (37.0-80.0); Platelet Count 283 K/mm3 (142-424); Red Cell Distribution Width 13.1 % (11.5-17.5); White Blood Count 6.6 K/mm3 (4.8-10.8)
[2021-03-09 17:51] LABS: Anion Gap 12.9 mEq/L (5-15); Blood Urea Nitrogen 12 mg/dl (9-20); Calcium 9.5 mg/dl (8.4-10.2); Carbon Dioxide 24 mmol/L (22.0-30.0); Chloride 105 mmol/L (98-107); Estimated Glomerular Filt Rate 115 ml/min (>60); GFR (African American) 139 ML/MIN (>60); Glucose 197 mg/dl (74-100); Potassium 3.9 mmoL/L (3.5-5.1); Sodium 138 mmol/L (136-145)
[2021-03-09 18:05] LABS: Acetone, Serum (Rapid) Small (None Detect)
== END ==
PROVIDERS: Visit Provider Internal Medicine
DX: R10.12 Left upper quadrant pain (principal); E11.9 Type 2 diabetes mellitus without complications; R35.0 Frequency of micturition; Z79.84 Long term (current) use of oral hypoglycemic drugs
CPT/HCPCS: 80048; 82009; 85025

== ENCOUNTER → 2021-03-13 10:40 | Outpatient (CLI) | payer OTHER, SELFPAY ==
--- NOTE | 2021-03-13 10:45 | CT_ITS ---
PROCEDURE: CT ABDOMEN PELVIS WO CON CLINICAL INDICATION: LUQ PAIN COMPARISON: No exams were available for comparison TECHNIQUE: Axial images obtained with sagittal and coronal reformats. All CT scans at the facility use one or more dose reduction, viz: automated exposure control, ma/kV adjustment per patient size (including targeted exams where dose is matched to indication, i.e. head), or iterative reconstruction technique. FINDINGS: LOWER THORAX: Coronary artery calcifications are present. ABDOMEN & PELVIS: Prior cholecystectomy. No focal liver lesion identified. The spleen, adrenal glands, pancreas, and kidneys have an unremarkable appearance. No renal or ureteral calculi. No hydronephrosis. No intestinal obstruction or free air. There is a tiny umbilical hernia containing fat. Unremarkable appendix. There is diverticulosis of the sigmoid colon. No evidence of diverticulitis. No pelvic mass or abnormal fluid collection. There are a few punctate sclerotic foci in the pelvis. No bony destructive process. IMPRESSION: No acute finding. There are few colonic diverticula but no evidence of diverticulitis. Dictated by: Gera Knowles MD 03/13/2021 11:20 Gera Knowles MD in [facility] 03/13/2021 11:20
== END ==
PROVIDERS: PCP Internal Medicine; Visit Provider Internal Medicine
DX: R10.12 Left upper quadrant pain (principal)
CPT/HCPCS: 74176

== ENCOUNTER → 2021-06-10 11:00 | Outpatient (CLI) | payer OTHER, SELFPAY | PROVIDERS: PCP Internal Medicine; Visit Provider Nurse Practitioner Family | DX: Z20.822 Contact with and (suspected) exposure to COVID-19 (principal) | CPT/HCPCS: C9803; U0003; U0005 ==

== ENCOUNTER → 2022-06-24 14:58 | Outpatient (CLI) | payer OTHER, SELFPAY ==
[2022-06-24 15:18] LABS: Basophils # 0.1 K/mm3 (0-0.2); Basophils % 0.9 % (0.1-2.0); Eosinophils % 0.4 % (0.1-12.0); Hematocrit 45.9 % (42.0-52.0); Hemoglobin 15.4 g/dL (14.1-18.0); Lymphocytes # 2.7 K/mm3 (0.7-4.5); Lymphocytes % 36.7 % (10-50); Mean Corpuscular HGB Conc 33.5 g/dL (31.8-35.4); Mean Corpuscular Hemoglobin 28.8 pg (27.0-31.2); Mean Corpuscular Volume 86.2 fl (80-94); Mean Platelet Volume 8.6 fl (7.4-10.4); Monocytes # 0.6 K/mm3 (0.1-1.0); Monocytes % 8.6 % (1.7-9.3); Neutrophils # 3.9 K/mm3 (1.8-7.8); Neutrophils % 53.5 % (37.0-80.0); Platelet Count 344 K/mm3 (142-424); Red Blood Count 5.33 M/mm3 (4.60-6.20); Red Cell Distribution Width 12.7 % (11.5-17.5); White Blood Count 7.3 K/mm3 (4.8-10.8)
[2022-06-24 15:30] LABS: Acetone, Serum (Rapid) None Detected (None Detect)
[2022-06-24 15:33] LABS: Chloride 93 mmol/L (98-107)
[2022-06-24 15:34] LABS: Potassium 4.3 mmoL/L (3.5-5.1); Sodium 129 mmol/L (136-145)
[2022-06-24 15:36] LABS: Blood Urea Nitrogen 25 mg/dl (9-20); Estimated Glomerular Filt Rate 76 ml/min (>60); GFR (African American) 92 ML/MIN (>60)
[2022-06-24 15:37] LABS: Calcium 9.7 mg/dl (8.4-10.2)
[2022-06-24 15:44] LABS: Glucose 431 mg/dl (74-100)
[2022-06-24 15:53] LABS: Anion Gap 15.3 mEq/L (5-15); Carbon Dioxide 25 mmol/L (22.0-30.0)
== END ==
PROVIDERS: PCP Internal Medicine; Visit Provider Internal Medicine
DX: E11.65 Type 2 diabetes mellitus with hyperglycemia (principal); Z79.84 Long term (current) use of oral hypoglycemic drugs
CPT/HCPCS: 80048; 80053; 82009; 85025

== ENCOUNTER → 2023-02-04 11:00 | Outpatient (CLI) | payer OTHER, SELFPAY ==
[2023-02-05 09:17] LABS: Basophils % 0.5 % (0.1-2.0); Eosinophils % 0.5 % (0.1-12.0); Hematocrit 46.5 % (42.0-52.0); Lymphocytes # 2.5 K/mm3 (0.7-4.5); Lymphocytes % 50.2 % (10-50); Mean Corpuscular HGB Conc 32.3 g/dL (31.8-35.4); Mean Corpuscular Hemoglobin 29.2 pg (27.0-31.2); Mean Corpuscular Volume 90.2 fl (80-94); Mean Platelet Volume 10.4 fl (7.4-10.4); Monocytes # 0.5 K/mm3 (0.1-1.0); Monocytes % 10.7 % (1.7-9.3); Neutrophils # 1.9 K/mm3 (1.8-7.8); Neutrophils % 38.1 % (37.0-80.0); Platelet Count 249 K/mm3 (142-424); Red Blood Count 5.16 M/mm3 (4.60-6.20); Red Cell Distribution Width 13.8 % (11.5-17.5); White Blood Count 4.9 K/mm3 (4.8-10.8)
[2023-02-05 09:30] LABS: MANUAL DIFFERENTIAL MANUAL DIFFERENTIAL (MANUAL DIFF)
[2023-02-05 09:55] LABS: Lymphocytes % 58 % (10-50); Monocytes % 10 % (2-9); Neutrophils % 32 % (42-76); Platelet Estimate Normal; RBC Morphology Normal; Total Cells Counted 100
[2023-02-05 10:12] LABS: Hemoglobin A1C 7.1 % (4.0-6.0)
[2023-02-05 10:54] LABS: Alanine Aminotransferase 26 U/L (12-78); Albumin Level 4.1 g/dl (3.5-5.0); Albumin/Globulin Ratio 1.4 (1.1-1.8); Alkaline Phosphatase 98 U/L (38-126); Anion Gap 17.9 mEq/L (5-15); Aspartate Amino Transferase 26 U/L (17-59); Bilirubin,Total 0.5 mg/dl (0.2-1.3); Blood Urea Nitrogen 14 mg/dl (9-20); Calcium 9.4 mg/dl (8.4-10.2); Carbon Dioxide 23 mmol/L (22.0-30.0); Chloride 101 mmol/L (98-107); Chol/HDL Ratio 3.4 (1-3.5); Cholesterol 182 mg/dl (140-200); Estimated Glomerular Filt Rate 98 ml/min (>60); GFR (African American) 118 ML/MIN (>60); Glucose 139 mg/dl (74-100); HDL Cholesterol 53 mg/dl (40-60); Potassium 3.9 mmoL/L (3.5-5.1); Sodium 138 mmol/L (136-145); Total Protein,Serum 7.1 g/dl (6.3-8.2); Triglycerides 177 mg/dl (30-150); VLDL Cholesterol 35 mg/dL (0-40)
[2023-02-05 11:05] LABS: Direct LDL Cholesterol 79.63 mg/dL (100-129)
[2023-02-05 11:24] LABS: Prostate Specific Ag Screen 1.4 ng/ml (0.0-4.0)
[2023-02-05 16:42] LABS: Microalbumin/Creatinine Ratio 4.9
[2023-02-05 16:48] LABS: Creatinine,Urine Random 169 mg/dL (Not Estab.)
== END ==
PROVIDERS: PCP Internal Medicine; Visit Provider Internal Medicine
DX: E11.9 Type 2 diabetes mellitus without complications (principal); I10 Essential (primary) hypertension; E78.5 Hyperlipidemia, unspecified; Z79.84 Long term (current) use of oral hypoglycemic drugs; Z12.5 Encounter for screening for malignant neoplasm of prostate
CPT/HCPCS: 80053; 80061; 82043; 82570; 83036; 85007; 85025; G0103

== ENCOUNTER 2023-06-13 10:26 | Day surgery (SDC) | payer OTHER, SELFPAY ==
[2023-06-11 09:50] VITALS: BMI 28.5
[2023-06-13] VITALS (7 sets, daily range): BP systolic 99–132; BP diastolic 59–93; PULSE 96–114; RESP 14–18; TEMP 36.1–36.9; O2SAT 90–97
[2023-06-13] MEDS: LACTATED RINGERS 1000ML 1,000 ML 25 ML IV (11:36)
[2023-06-13 11:41] LABS: POC Glucose,Bedside 195 (70-110)
--- NOTE | 2023-06-13 12:46 | P.PNANES_ITS ---
[facility] Disclaimer: The information contained in this section may have been updated after the patient was seen, as this information can be updated by other users. Medical History History of diabetes mellitus History of hyperlipidemia Surgical History (Updated 06/13/23 @ 11:32 by Sena Noble RN) History of back surgery History of elbow surgery History of knee surgery History of laparoscopic cholecystectomy History of shoulder surgery Family History Other Family history of ND (myocardial infarction) Family history of coronary artery disease Family history of dementia Social History (Updated 06/13/23 @ 11:34 by Sena Noble RN) Smoking Status: Never smoker alcohol intake: former substance use type: marijuana current occupational status: disabled Travel in the last 8 weeks: None household members: spouse housing: house caffeine: Yes [facility] Anesthesia Checklist Patient Identification Patient Identification: Arm Band Structural Data Admitted From: Home Planned Operative Procedure/s: Colonoscopy Consent for Planned Operative Procedure(s) Verified: Yes Verified Documents: Surgical Consent and History and Physical NPO Status Verified Time NPO: 00:00 Additional verifications Anesthesia Reactions: No Airway Assessment Mallampati Score:: Class II C-Spine Mobility Assessed: Yes TMJ Mobility Assessed: Yes Dentition: Good Dentition Neurological Assessment Level of Consciousness: Awake and Alert Anesthesia Plan Anesthesia Risk discussed: Yes Anesthesia Plan: Verified ASA Class: III Anesthesia Type: MAC
--- NOTE | 2023-06-13 13:24 | HMH.SCOPE ---
Procedure: Date: 06/13/23 Patient Date of :: 1960 Procedure Performed:: Total colonoscopy to terminal ileum with polypectomy using cold snare Indications:: Patient is a 62-year-old male. He had colonoscopy in 2011 and had a tubular adenoma removed. He underwent follow-up colonoscopy 5 years later 02/25/2017 and had rare diverticuli and rectal polyp. 5-year colonoscopy recommended Performing Provider:: Erich Bower MD Referring Provider:: Andrew Melgar MD Sedation:: MAC sedation Procedure:: Patient history was obtained and appropriate physical examination was performed. Patient's medications and allergies were reviewed. Informed consent was obtained after explaining the benefits, alternatives, and risks of the procedure including, but not limited to, bleeding, perforation, missed lesions, and adverse reaction to anesthesia medications. Patient was transported to endoscopy procedure room. Patient was connected to monitoring devices. Throughout the procedure the patient's blood pressure, pulse, and oxygen saturations were monitored continuously. Patient identification and planned procedure were verified by the staff. Patient was positioned in lateral decubitus position. Digital anorectal exam was performed. Variable stiffness Olympus colonoscope was inserted and advanced under direct visualization to the cecum. Adequacy of the colonic preparation was noted. The colonoscope was advanced a short distance into the terminal ileum. The colonoscope was then slowly withdrawn while carefully examining the color, texture, anatomy, and integrity of the mucosoa circumferentially. Within the rectum retroflexion was performed. Colonoscope was then withdrawn. . In the cecum there was a tiny diminutive polyp removed with cold snare. In the ascending colon there was somewhat of an elongated diminutive polyp removed with cold snare. There were some rare diverticuli noted. . Findings:: Polyp x 2 as noted above Rare diverticuli Recommendations:: Repeat colonoscopy pending pathology. Likely 3 to 5 years Complications:: None immediately apparent Estimated blood obtained (mL): 1 Colonoscopy Component Colonoscopy Component Was a colonoscopy performed during today's procedure?: Yes Recommended follow up colonoscopy of at least 10 years?: No If no, follow up colonoscopy recommended in ___ years?: See above Reason for not recommending >/= 10 yr follow-up interval?: See above
--- NOTE | 2023-06-13 14:09 | EXP.ANES.I ---
[facility] Anesthesia Record Part I Anesthesia Record I Intake, IV Amount: 600 Hydration: Adequate Estimated blood loss (mL): 1 Urine output (mL): 0 Blood Products used (#): none Blood Pressure: 99/59 SaO2: 90 Pulse Rate: 109 Airway Patency: Patent Respiratory Rate: 16 Temperature: 97.0 F Patient is:: Awake, Drowsy and Stable Stable to PACU at:: 14:10
== END 2023-06-13 14:35 | disposition home or self-care (01) ==
PROVIDERS: PCP Internal Medicine; Visit Provider Surgery
PROC: 0DJD8ZZ Inspection of Lower Intestinal Tract, Via Natural or Artificial Opening Endoscopic (ICD-10-PCS; CPT 45385; principal; 2023-06-13 11:30)
DX: Z12.11 Encounter for screening for malignant neoplasm of colon (principal); Z86.010 Personal history of colon polyps; K63.5 Polyp of colon; E11.9 Type 2 diabetes mellitus without complications
CPT/HCPCS: 45385; 82962; J2704

== ENCOUNTER 2024-12-27 09:55 | Outpatient (CLI) | payer MEDICARE, SELFPAY ==
--- OUTSIDE RECORDS SUMMARY | 2024-12-27 09:58 | XMS_ITS | Data Portability ---
Author Organization [facility], [facility] Address [address] [place] [address] Care Team Providers Care Mercury Cell Cleaner Name Role Phone PORTIA ASH Referring Provider [phone] Assessment Encounter Date Assessment Date Assessment LastModified by Organization Details LastModified Time 08/14/2018 08/14/2018 This is a 58-year-old gentleman seen today for evaluation and treatment related to left-sided low back pain with referral into the left lower extremity to the knee. He denies any a cauda equina type symptoms. Pain has been present for approximately one year but has significantly worsened over the last few months. This pain began after bending to pickle solution maker tree branches at his house. Thus far treatment has been with his family physician. Medication management has included tramadol and Soma. He takes this for knee pain and back pain. He did consult with Dr. Yarbrough who did not recommend surgery at the time but referred him to physical therapy. The patient did not complete physical therapy due to cost. He has a relevant past medical history of bipolar disorder. A lumbar MRI performed in 2019 demonstrates multilevel degeneration, facet arthritis, and ligamentum flavum hypertrophy resulting in canal and lateral recess stenosis primarily at L5-S1, L3-4, and L1-2. He's undergone local trigger point injections with his PCP with short-term benefit. As above medication management has included tramadol and Soma prescribed by his PCP. His presentation is consistent with acute on chronic lumbar radiculopathy. I recommend initiation of gabapentin. I'll also perform an epidural steroid injection today due to the severity of his pain. I'll perform leftward L4-5 interlaminar RODGER. We will also prescribe gabapentin 300 mg 3 times a day. I would be hesitant to escalate opioids given his bipolar disorder. I'll also emphasize the need for physical therapy after the injection. I'll give him an updated order today. Failure of the above would result in referral back to Dr. Rome for consideration of surgery. [email or web address] Not available 08/14/2018 11:32:55 Plan of Treatment Reminders Order Date Submit Date Provider Last Modified By Organization Details Last Modified Time Details Appointments None recorded. Lab drug screen, urine 2018 marcello [facility], [facility] [address], [place], [address], 9 11:33:26 Referral physical therapist referral 2018 [email or web address] Not available 9 09:53:07 Procedures epidural steroid injection, lumbar interlamin ar (PROC) 2018 [email or web address] Not available 9 09:59:36 Surgeries None recorded. Imaging None recorded. Medication Orders gabapentin 300 mg capsule 2018 [facility] #[id number], [address], [id number], 9 11:33:29 Patient TargetsNo targets recorded. Patient InstructionsNo instructions recorded. Reason for Referral Physical Therapist Referral for Lumbar radiculopathy Referring Physician: Doni Lee, Pain Management, Encounter Date: 08/14/2018 Results Created Date Observation Date Name Description Value Unit Range Abnormal Flag Note LastModifiedBy Organization Detail LastModifiedTime 08/15/1908/14/2018 drug scree n, urine THC: negati ve Not Available [facility] [address], [place], [address], 08/14/2018 10:37:25 08/15/1908/14/2018 drug scree n, urine Buprenorphin e: negati ve Not Available [facility] [address], [place], [address], 08/14/2018 10:37:25 08/15/1908/14/2018 drug scree n, urine TCA: positi ve Not Available [facility] [address], [place], [address], 08/14/2018 10:37:25 08/15/19 19 08/14/2018 drug scree n, urine Barbiturates : negati ve Not Available [facility] [address], [place], [address], 08/14/2018 10:37:25 08/15/19 19 08/14/2018 drug scree n, urine Benzodiazepi jimi: negati ve Not Available [facility] [address], [place], [address], 08/14/2018 10:37:25 08/15/19 19 08/14/2018 drug scree n, urine Methadone: negati ve Not Available [address], [place], [address], 08/14/2018 10:37:25 08/15/19 19 08/14/2018 drug scree n, urine Amphetamines : negati ve Not Available [address], [place], [address], 08/14/2018 10:37:25 08/15/19 19 08/14/2018 drug scree n, urine Morphine/Opi ates: negati ve Not Available [address], [place], [address], 08/14/2018 10:37:25 08/15/19 19 08/14/2018 drug scree n, urine Oxycodone: positi ve Not Available [facility] [address], [place], [address], 08/14/2018 10:37:25 08/15/1908/14/2018 drug scree n, urine MDMA: negati ve Not Available [address], [place], [address], 08/14/2018 10:37:25 08/15/19 19 08/14/2018 drug scree n, urine Cocaine: negati ve Not Available [facility] [address], [place], [address], 08/14/2018 10:37:25 08/15/19 19 08/14/2018 drug scree n, urine Methamphetam ine: negati ve Not Available [facility] [address], [place], [address], 08/14/2018 10:37:25 Result Notes None recorded. Problems Name Problem SNOMED Code Status Onset Date Resolution Date Notes Provider Name and Address Organization Details Recorded Time Low back pain 280140537 Active 019 [facility] 08/14/2018 10:37:06 Problem Notes None recorded. Procedures Surgical History Date Name Laterality Status Provider Name and Address Organization Details Recorded Time 08/15/19 19 Lumbar RODGER: Interlaminar completed Doni Lee MD [address] [place] [address], [address] 08/14/2018 13:03:14 Knee Surgery completed [facility] 08/14/2018 10:34:53 Orthopedic Surgery completed [facility] 08/14/2018 10:34:53 Shoulder Surgery completed [facility] 08/14/2018 10:34:53 Imaging Results None recorded. Procedure Notes None recorded. Medical Equipment None Reported. Allergies No known drug allergies Medications Name Sig Start Date Stop Date Status Note LastModified by Organization Details LastModified Time carisoprodol 350 mg tablet active Not Available Not Available Not Available cyclobenzapr ine 10 mg tablet active Not Available Not Available Not Available amoxicillin 500 mg capsule 08/14 completed Not Available Not Available Not Available methocarbamo l 500 mg tablet 08/14 completed Not Available Not Available Not Available promethazine -DM 6.25 mg-15 mg/5 mL oral syrup 08/14 completed Not Available Not Available Not Available trazodone 50 mg tablet 08/14 completed Not Available Not Available Not Available atorvastatin 10 mg tablet active Not Available Not Available Not Available hydrocodone 5 mg-acetamino phen 325 mg tablet 08/14 completed Not Available Not Available Not Available prednisone 20 mg tablet 08/14 completed Not Available Not Available Not Available tramadol 50 mg tablet active Not Available Not Available No t Available oxycodone-ac etaminophen 5 mg-325 mg tablet 08/14 completed Not Available Not Available Not Available meclizine 25 mg tablet 08/14 completed Not Available Not Available Not Available hydrocodone 7.5 mg-acetamino phen 325 mg tablet 08/14 completed Not Available Not Available Not Available cephalexin 500 mg capsule 08/14 completed Not Available Not Available Not Available metformin 1,000 mg tablet 08/14 completed Not Available Not Available Not Available gabapentin 300 mg capsule Take 1 capsule 3 times a day by oral route for 30 days. active Not Available Not Available No t Available lisinopril 20 mg-hydrochlo rothiazide 25 mg tablet active Not Available Not Available Not Available levofloxacin 500 mg tablet 08/14 completed Not Available Not Available Not Available risperidone 0.5 mg tablet active Not Available Not Available Not Available Pneumovax-23 25 mcg/0.5 mL injection syringe 08/14 completed Not Available Not Available Not Available Soma active Not Available Not Availa ble Not Available Havrix (PF) 1,440 ANGEL unit/mL intramuscula r syringe 08/14 completed Not Available Not Available Not Available Afluria Quad (PF) 60 mcg (15 mcg x 4)/0.5 mL IM syringe 08/14 completed Not Available Not Available Not Available Vitals Date Recorded Body height Body mass index (BMI) Body weight Oxygen saturation Oxygen saturation in Arterial blood by Pulse oximetry Heart rate Systolic And Diastolic Provider Name and Address Organization Details Last Updated DateTime 9 182.88 cm 28.5 kg/m2 89691.4 g 98 % 98 % 74 /min 154/90 mm[Hg] Rico DEXTER [facility] 9 10:44:04 Social History Question Answer Notes LastModified by Organizat ion Details LastModified Time Tobacco Smoking Status Never Smoker ISACC Graves [facility] 08/14/2018 10:34:49 What Is Your Level Of Caffeine Consumption? Occasional [email or web address] Information not available 08/14/2018 How Much Tobacco Do You Chew? None [email or web address] Information not available 08/14/2018 Are You Deaf Or Do You Have Serious Difficulty Hearing? No [email or web address] Information not available 08/14/2018 Which Illicit Or Recreational Drugs Have You Used? Trimadol [email or web address] Information not available 08/14/2018 Hard Of Hearing Or Deaf In One Or Both Ears? No [email or web address] Information not available 08/14/2018 Marital Status Informatio n not available 08/14/2018 What Was The Date Of Your Most Recent Tobacco Screening? 08/14/2018 Information not available 12/30/2018 General Stress Level High [email or web address] Information not available 08/14/2018 Do You Have Difficulty Walking Or Climbing Stairs? Yes [email or web address] Information not available 08/14/2018 Sex: Unknown Functional Status Question Answer Note LastModified by Organizat ion Details LastModified Time What is your level of alcohol consumption? None Information not available 08/14/2018 Are you able to walk? YESASSIST [email or web address] Information not available 08/14/2018 Do you have difficulty doing errands alone? No [email or web address] Information not available 08/14/2018 Do you have difficulty dressing or bathing? No [email or web address] Information not available 08/14/2018 What is your exercise level? None [email or web address] Information not available 08/14/2018 Mental Status Question Answer Note LastModified by Organization D etails LastModified Time Do you have difficulty concentrating, remembering or making decisions? No [email or web address] Information no t available 08/14/2018 Family History Relationship Description Onset Age of this Age Resolved Age Notes LastModified by Organization Details LastModified Time Father Diabetes mellitus Not available 2018 10:34:38 Father Heart disease [email or web address] Not available 2018 10:34:38 Mother Fibromyalgia [email or web address] Not avai lable 08/14/2018 10:34:38 Mother Rheumatoid arthritis [email or web address] Not available 2018 10:34:38 Brother Diabetes mellitus Not available 2018 10:34:38 Medical History Condition Response Bipolar Disease Y Coronary Artery Disease N Gout N Seizure Disorder N Head Trauma/Injury Y Hernia N Depression Y Anxiety Disorder Y Cancer N Stroke N Liver Disease N Rheumatoid Arthritis Y Fibromyalgia N Headaches N Kidney Disease N Autoimmune Disease N Osteoarthritis Y Anemia N Heart Attack ([place]) N Diabetes Y Cardiomyopathy N Bleeding Disorder N AIDS/HIV N Inflammatory Bowel Disease N Dementia N Substance Abuse N Sleep Apnea Y Hepatitis N Heart Disease N Chronic Low Back Pain Y Hypertension Y Osteoporosis N Past Encounters Encounter ID Performer Location Encounter Start Date Encounter Closed Date Diagnosis/Indication Diagnosis SNOMED-CT Code Diagnosis ICD10 Code Diagnosis Note [id number] Doni Lee MD [facility] [address] [place] [address] 08/14/2018 09:29:35 08/14/2018 11:46:38 Low back pain 902925561 M54.5 Interverte bral disc disorder 01510354 M51.27 Long-term drug therapy 471872703 Z79.899 The urine sample is being sent for LCMS, quantitati ve analysis as this is a patient that being prescribed medication s for the first time at this practice. The purpose of this analysis is to confirm the patients stated medication usage and to establish baseline medication and metabolite quantities . Lumbar radiculopathy 128 189520 M54.16 [id number] Doni Lee MD [facility] [address] [place] [address] 08/14/2018 11:33:34 08/14/2018 11:54:33 Lumbar radiculopathy 374072038 M54.16 Health Concerns Section Related Observation LastModified by Organization Detai ls LastModified Time None Recorded Concern Status LastModified by Organization Details LastModified Time None Recorded Advance Directives Directive None Recorded Payers Insurance Date Sequence Insurance Name Policy Number Policy Pepper Covered Member ID Pepper Member ID Guarantor Name 09/11/2018 Linus DARELL Luna [id number] Curt Luna Notes Date Note Type Note Provider Name and Address Organization Details Recorded Time 08/14/2018 text/html Low back painReported bypatient.Onset:1+ years; continuous since onset Location:left paraspinal; midline spine; radiating down the left lower extremity to the knee (Posterior aspect) Context:started without cause Quality:aching; stabbing; sharp; constant Severity:current pain level: 8/10; worst pain level: 9/10 Alleviating Factors:lying down; opioids; muscle relaxants Aggravating Factors:standing; walking Timing:constant; worse at nighttime Associated Symptoms:no weakness; no numbness; no pain radiating down leg; no swelling; no popping/clicking; no bowel incontinence; no urinary retention; no urinary incontinence; no perineal paresthesia/anesth esia;numbness(Left foot);tingling(Lef t foot) Prior Imaging:MRI (07/16/2018 MRI Lumbar Spine) Previous Lumbar Surgery:none; orthopedic/neurosu rgical evaluation: (Dr. Jones) Previous Injections:helped temporarily Previous PT:none Medications History:NSAIDs: (Celebrex- min effective); muscle relaxants: (Soma- effective Flexeril- not effective); neuropathics: (Denies); opioid pain medications: (Tramadol- effective Oxycodone- effective) Work Related:no Working:no Prior Pain Management:no Doni Lee MD [address] [place] [address], [address] 08/14/2018 11:33:31
--- OUTSIDE RECORDS SUMMARY | 2024-12-27 09:58 | XMS_ITS | Clinical Summary ---
Author Organization [facility] Address [address] [place] [address] Care Team Providers Care Malt House Kiln Operator Name Role Phone Slim Gutierrez MD Primary Care Provider [phone] Allergies No known active allergies Medications risperiDONE (risperDAL) 0.5 MG tablet Take 0.5 mg by mouth 2 (Two) Times a Day. Active atorvastatin (LIPITOR) 10 MG tablet Take 10 mg by mouth Daily. Active metFORMIN (GLUCOPHAGE) 1000 MG tablet Take 1,000 mg by mouth 2 (Two) Times a Day With Meals. Active lisinopril-hydr ochlorothiazide (PRINZIDE,ZESTO RETIC) 20-25 MG per tablet Take 1 tablet by mouth Daily. Active traZODone (DESYREL) 50 MG tablet Take 50 mg by mouth Every Night. Active busPIRone (BUSPAR) 15 MG tablet Take 15 mg by mouth 3 (Three) Times a Day. Active PARoxetine (PAXIL) 20 MG tablet Take 20 mg by mouth Every Morning. Active carisoprodol (SOMA) 350 MG tablet Take 350 mg by mouth 4 (Four) Times a Day As Needed for Muscle Spasms. Active traMADol (ULTRAM) 50 MG tablet Take 50 mg by mouth Every 6 (Six) Hours As Needed for Moderate Pain . Active Active Problems No known active problems Family History Medical History Relation Name Comments Coronary artery disease Father Arthritis Mother Diabetes Son Relation Name Status Comments Father Mother Son Social History Tobacco Use Types Packs/Day Years Used Date Smoking Tobacco: Never Smokeless Tobacco: Never Alcohol Use Standard Drinks/Week Comments No 0 (1 standard drink = 0.6 oz pur e alcohol) Abuse Screen Answer Date Recorded Unsafe at Home or Work/School Not on file Feels Threatened by Someone? Not on file 02/2023 Does Anyone Keep You from Co ntacting Others or Doint Things Outside the Home? Not on file 03/17/2023 Physical Sign of Abuse Present Not on file 1 Housing Stability Answer Date Recorded Current Living Arrangements Not on file 02/2023 Potentially Unsafe Housing Conditions Not on cammie e 03/17/2023 Family and Community Support Answer [place] e Recorded Help with Day-to-Day Activities Not on file 03/17/2023 Lonely or Isolated Not on file 03/17/2023 Employment Answer Date Recorded Do you want help finding or keeping work or a inder b? Not on file 03/17/2023 Disabilities Answer Date Recorded Concentrating, Remembering, or Making Decisions Difficulty Not on file 03/17/2023 Doing Errands Independently Difficulty Not on fi le 03/17/2023 Education Answer Date Recorded Help with school or training? Not on file Preferred Language Not on file 03/17/2023 Sex and Gender Information Value Date Recorded Sex Assigned at Not on file Legal Sex Male 1:31 PM EDT Gender Identity Not on file Sexual Orientation Not on file Last Filed Vital Signs Vital Sign Reading Time Taken Comments Blood Pressure - - Pulse - - Temperature 36.7 C (98 F) 03/06/2018 11:19 AM EDT Respiratory Rate - - Oxygen Saturation - - Inhaled Oxygen Concentration - - Weight 93.9 kg (207 lb) 03/06/2018 11:19 AM EDT Height 182.9 cm (6') 03/06/2018 11:19 AM EDT Body Mass Index 28.07 03/06/2018 11:19 AM EDT Plan of Treatment Health Maintenance Due Date Last Done Comments TDAP/TD VACCINES (1 - Tdap) 1978 COLOGUARD 2004 COLON CANCER SCREENING 5 YEAR SIGMOIDOSCOPY 2004 COLONOSCOPY [address] SCREENING [address] COLONOGRAPHY 2004 FECAL OCCULT BLOOD TEST 2004 FIT Testing (1 year) 2004 Pneumococcal Vaccine 50+ (1 of 1 - PCV) 2009 ZOSTER VACCINE (1 of 2) 2009 ANNUAL PHYSICAL 03/05/2018 HEPATITIS C SCREENING 03/05/2018 COVID-19 Vaccine (1 - season) 2024 INFLUENZA VACCINE 03/09/2025 AAA SCREEN ONCE Completed 09/16/2013 Procedures Procedure Name Priority Date/Time Associated Diagnosis Comments CT ABDOMEN PELVIS WO CONTRAST Routine 09/16/2013 1:10 PM EDT from Last 3 Months or Most Recently Relevant to Health Maintenance Results * CT ABDOMEN PELVIS WITHOUT CONTRAST (09/16/2013 1:10 PM EDT) Anatomical Region Laterality Modality Upper Extremities, Shoulder N/A Comp uted Tomography 09/16/2013 1:10 PM EDT Narrative 09/16/2013 1:[address] OF THE ABDOMEN AND PELVIS WITHOUT CONTRAST - 09/16/2013: INDICATION: Abdominal pain. TECHNIQUE: Multiple axial CT imaging was obtained of the abdomen and pelvis without the administration of oral or intravenous contrast. The radiation dose reduction device was turned on as low as reasonably achievable for each scan per ALARA protocol. COMPARISON: No prior studies are available for comparison. FINDINGS: ABDOMEN: Chronic changes identified at the lung bases bilaterally. The liver and spleen are homogeneous in appearance. The patient is status post cholecystectomy. The kidneys and adrenal glands are within normal limits. The pancreas is homogeneous. No abdominal or retroperitoneal lymphadenopathy. The abdominal portions of the gastrointestinal tract are within normal limits. The pancreas is homogeneous. No free fluid or free air. No abnormal mass or fluid collection is identified. PELVIS: The pelvic organs are unremarkable in appearance. Diverticulosis of the colon without evidence of diverticulitis. There is no abnormal mass or fluid collection seen within the pelvis. No pelvic lymphadenopathy. No free fluid or free air. The bony structures reveal degenerative changes identified within the spine. The appendix is radiographically normal in appearance. IMPRESSION- No CT evidence of acute intra-abdominal or pelvic abnormality. E: 09/16/2013 Community Board Member- ROSALES López Radiologist- TINY GAO Releasing Radiologist- TINY GAO Released Date Time- 09/16/13 1514 Procedure Note Tiny Hoyt MD - 02/28/2015 CT OF THE ABDOMEN AND PELVIS WITHOUT CONTRAST - 09/16/2013: INDICATION: Abdominal pain. TECHNIQUE: Multiple axial CT imaging was obtained of the abdomen and pelvis without the administration of oral or intravenous contrast. The radiation dose reduction device was turned on as low as reasonably achievable for each scan per ALARA protocol. COMPARISON: No prior studies are available for comparison. FINDINGS: ABDOMEN: Chronic changes identified at the lung bases bilaterally. The liver and spleen are homogeneous in appearance. The patient is status post cholecystectomy. The kidneys and adrenal glands are within normal limits. The pancreas is homogeneous. No abdominal or retroperitoneal lymphadenopathy. The abdominal portions of the gastrointestinal tract are within normal limits. The pancreas is homogeneous. No free fluid or free air. No abnormal mass or fluid collection is identified. PELVIS: The pelvic organs are unremarkable in appearance. Diverticulosis of the colon without evidence of diverticulitis. There is no abnormal mass or fluid collection seen within the pelvis. No pelvic lymphadenopathy. No free fluid or free air. The bony structures reveal degenerative changes identified within the spine. The appendix is radiographically normal in appearance. IMPRESSION- No CT evidence of acute intra-abdominal or pelvic abnormality. E: 09/16/2013 Community Board Member- ROSALES López Radiologist- TINY GAO Releasing Radiologist- TINY GAO Released Date Time- 09/16/13 1514 Rebel OLIVAREZ [facility] CT ORDERABLES Final Result from Last 3 Months or Most Recently Relevant to Health Maintenance Insurance [facility] Care Teams Malt House Kiln Operator Relationship Specialty Start Date End Date Slim Gutierrez MD [address] [place] [address] PCP - General Family Medicine 02/24/18
--- OUTSIDE RECORDS SUMMARY | 2024-12-27 09:58 | XMS_ITS | Clinical Summary ---
Author Organization Healthcare Address [facility] [place] [address] Care Team Providers Care Mind Reader Name Role Phone Andrew Melgar MD Primary Care Provider [phone] Social History Tobacco Use Types Packs/Day Years Used Date Smoking Tobacco: Never Alcohol Use Standard Drinks/Week Comments No 0 (1 standard drink = 0.6 oz pur e alcohol) Sex and Gender Information Value Date Recorded Sex Assigned at Not on file Legal Sex Male 7:35 PM EDT Gender Identity Not on file Sexual Orientation Not on file Last Filed Vital Signs Vital Sign Reading Time Taken Comments Blood Pressure 120/74 07/07/2020 2:03 PM EST Pulse - - Temperature 36.6 C (97.8 F) 07/07/2020 2:03 PM EST Respiratory Rate - - Oxygen Saturation - - Inhaled Oxygen Concentration - - Weight 90.3 kg (199 lb 0.2 oz) 07/07/2020 2:03 P M EST Height 182.9 cm (6') 07/07/2020 2:03 PM EST Body Mass Index 26.99 07/07/2020 2:03 PM EST Plan of Treatment Not on file Insurance [employer] S[employer]IOR [id number] MEDICARE Care Teams Mind Reader Relationship Specialty Start Date End Date Andrew Melgar MD [address] [facility] [address] [place] [id number] PCP - General 10/20/20
--- NOTE | 2024-12-27 10:00 | XR_ITS ---
FINAL REPORT CLINICAL HISTORY: Left Knee Pain COMPARISON: None FINDINGS: LEFT KNEE 3 views of the left knee were obtained. There is no acute fracture or dislocation. Severe joint space narrowing of the medial compartment. Moderate patellofemoral joint disease. There is a small joint effusion. Soft tissues are unremarkable. IMPRESSION: Degenerative changes without acute bony abnormality. Reviewed, Interpreted and Dictated by Eric Metzger MD Transcribed by Eula Montes Authenticated and [facility]
== END 2024-12-27 23:59 | disposition home or self-care (01) ==
LOC: RAD 09:56
PROVIDERS: PCP Internal Medicine; Visit Provider Orthopaedic Surgery
DX: M17.12 Unilateral primary osteoarthritis, left knee (principal); M25.462 Effusion, left knee
CPT/HCPCS: 73562

== ENCOUNTER 2025-05-02 11:48 | Outpatient (CLI) | payer MEDICARE, SELFPAY ==
--- NOTE | 2025-05-02 12:00 | ECG_ITS ---
APPROVED REPORT Exam: Resting ECG HR:78 bpm ECG Measurements Heart Rate 78 AXES UT 147 P 7 QRSd 94 QRS 81 QT 335 T -22 QTc 368 Conclusion SINUS RHYTHM MODERATE T-WAVE ABNORMALITY, CONSIDER LATERAL ISCHEMIA [-0.1+ mV T-WAVE IN I/aVL/V5/V6] ABNORMAL ECG UNCONFIRMED REPORT Electronically signed by : Rebel Hayes MD 05/03/2025 10:08:20
--- OUTSIDE RECORDS SUMMARY | 2025-05-02 12:00 | XMS_ITS | Data Portability ---
Author Organization [facility] Address [address] [place] [address] Care Team Providers Care Ankle Patch Molder Name Role Phone PORTIA ASH Referring Provider Assessment Encounter Date Assessment Date Assessment LastModified [...] months. 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 Thus far [...] recorded. Lab drug screen, urine 2018 [email or web address] [place], [facility] [address], [place], [address], 9 11:33:26 Referral physical therapist referral 2018 [email or web address] Not available 9 09:53:07 Procedures epidural steroid injection, lumbar interlamin ar (PROC) 2018 [email or web address] Not available 9 09:59:36 Surgeries None recorded. Imaging None recorded. Medication Orders gabapentin 300 mg capsule 2018 [employer] #[id number], [address], [phone], 9 11:33:29 Patient TargetsNo targets recorded. Patient InstructionsNo instructions recorded. Reason for Referral Physical Therapist Referral for Lumbar radiculopathy Referring Physician: Doni Lee, Pain Management, Encounter Date: 08/14/2018 Results Created Date Observation Date Name Description Value Unit Range Abnormal Flag Note LastModifiedBy Organization Detail LastModifiedTime 08/15/1908/14/2018 drug scree n, urine THC: negati ve Not Available [place] [address], [place], [address], 08/14/2018 10:37:25 08/15/1908/14/2018 drug scree n, urine Buprenorphin e: negati ve Not Available [place] [address], [place], [address], 08/14/2018 10:37:25 08/15/1908/14/2018 drug scree n, urine TCA: positi ve Not Available [place] [address], [place], [address], 08/14/2018 10:37:25 08/15/19 19 08/14/2018 drug scree n, urine Barbiturates : negati ve Not Available [place] [address], [place], [address], 08/14/2018 10:37:25 08/15/19 19 08/14/2018 drug scree n, urine Benzodiazepi jimi: negati ve Not Available [place] [address], [place], [address], 08/14/2018 10:37:25 08/15/19 19 08/14/2018 drug scree n, urine Methadone: negati ve Not Available [address], [place], [address], 08/14/2018 10:37:25 08/15/19 19 08/14/2018 drug scree n, urine Amphetamines : negati ve Not Available [address], [place], [address], 08/14/2018 10:37:25 08/15/19 19 08/14/2018 drug scree n, urine Morphine/Opi ates: negati ve Not Available [address], [place], [address], 08/14/2018 10:37:25 08/15/19 19 08/14/2018 drug scree n, urine Oxycodone: positi ve Not Available [place] [address], [place], [address], 08/14/2018 10:37:25 08/15/1908/14/2018 drug scree n, urine MDMA: negati ve Not Available [address], [place], [address], 08/14/2018 10:37:25 08/15/19 19 08/14/2018 drug scree n, urine Cocaine: negati ve Not Available [place] [address], [place], [address], 08/14/2018 10:37:25 08/15/19 19 08/14/2018 drug scree n, urine Methamphetam ine: negati ve Not Available [place] [address], [place], [address], 08/14/2018 10:37:25 Result Notes None recorded. Problems Name Problem SNOMED Code Status Onset Date Resolution Date Notes Provider Name and Address Organization Details Recorded Time Low back pain 110851458 [facility] 08/14/2018 10:37:06 Problem Notes None recorded. Procedures Surgical History Date Name Laterality Status Provider Name and Address Organization Details Recorded Time 08/15/19 19 Lumbar RODGER: Interlaminar completed Doni Lee MD [address] [place] [address], [phone] 08/14/2018 13:03:14 Knee Surgery completed [facility] 08/14/2018 10:34:53 Orthopedic Surgery completed [facility] 08/14/2018 10:34:53 Shoulder Surgery completed [facility] 08/14/2018 10:34:53 Imaging Results None recorded. Procedure [...] mass index (BMI) Body weight Oxygen saturation Heart rate Systolic And Diastolic Provider Name and Address Organization Details Last Updated DateTime 9 182.88 cm 28.5 kg/m2 90782.4 g 98 % 74 /min 154/90 mm[Hg] Rico EDXTER [facility] 9 10:44:04 Social History Question Answer Notes LastModified by Organizat ion Details LastModified Time Tobacco Smoking Status Never Smoker ISACC Graves [facility] 08/14/2018 10:34:49 What Is Your Level Of Caffeine Consumption? Occasional [email or web address] Information not available 08/14/2018 How Much Tobacco Do You Chew? None Information not available 08/14/2018 Are You Deaf Or Do You Have Serious Difficulty Hearing? No [email or web address] Information not available 08/14/2018 Which Illicit Or Recreational Drugs Have You Used? Trimadol Information not available 08/14/2018 Hard Of Hearing Or Deaf In One Or Both Ears? No [email or web address] Information not available 08/14/2018 Marital Status [email or web address] Informatio n not available 08/14/2018 What Was The Date Of Your Most Recent Tobacco Screening? 08/14/2018 Information not available 12/30/2018 General Stress Level High [email or web address] Information not available 08/14/2018 Do You Have Difficulty Walking Or Climbing Stairs? Yes [email or web address] Information not available 08/14/2018 Sex: Unknown Functional Status Question Answer Note LastModified by Organizat ion Details LastModified Time What is your level of alcohol consumption? None [email or web address] Information not available 08/14/2018 Are you able to walk independently without assistance or assistive devices? YESASSIST Information not available 08/14/2018 Do you have difficulty doing errands alone? No [email or web address] Information not available 08/14/2018 Do you have difficulty dressing, bathing, grooming, or toileting? No [email or web address] Information not available 08/14/2018 What is your exercise level? None [email or web address] Information not available 08/14/2018 Mental Status Question Answer Note LastModified by Organization D etails LastModified Time Do you have difficulty concentrating, remembering or making decisions? No [email or web address] Information no t available 08/14/2018 Family History Relationship Description Onset Age of this Age Resolved Age Notes LastModified by Organization Details LastModified Time Father Diabetes mellitus [email or web address] Not available 2018 10:34:38 Father Heart disease Not available 2018 10:34:38 Mother Fibromyalgia [email or web address] Not avai lable 08/14/2018 10:34:38 Mother Rheumatoid arthritis [email or web address] Not available 2018 10:34:38 Brother Diabetes mellitus Not available 2018 10:34:38 Medical History Condition Response Bipolar Disease Y Coronary Artery Disease N Gout N Seizure Disorder N Osteoarthritis Y Hernia N Head Trauma/Injury Y Depression Y Anemia N Heart Attack (DC) N Anxiety Disorder Y Diabetes Y Cardiomyopathy N Bleeding Disorder N AIDS/HIV N Inflammatory Bowel Disease N Cancer N Stroke N Dementia N Substance Abuse N Sleep Apnea Y Hepatitis N Liver Disease N Heart Disease N Rheumatoid Arthritis Y Chronic Low Back Pain Y Headaches N Fibromyalgia N Hypertension Y Osteoporosis N Kidney Disease N Autoimmune Disease N Past Encounters Encounter ID Performer Location Encounter Start Date Encounter Closed Date Diagnosis/Indication Diagnosis SNOMED-CT Code Diagnosis ICD10 Code Diagnosis IMO Codes Diagnosis Note [id number] Doni Lee MD [place] [address] [place] [address] 08/14/2018 09:29:35 08/14/2018 11:46:38 Low back pain 132169950 M54.5 Interverte bral disc disorder 65138727 M51.27 Long-term drug therapy 884775317 Z79.899 The urine sample is being sent for LCMS, quantitati ve analysis as this is a patient that being prescribed medication s for the first time at this practice. The purpose of this analysis is to confirm the patients stated medication usage and to establish baseline medication and metabolite quantities . Lumbar radiculopathy 128 265911 M54.16 [id number] Doni Lee MD [place] [address] [place] [address] 08/14/2018 11:33:34 08/14/2018 11:54:33 Lumbar radiculopathy 350465515 M54.16 Health Concerns Section Related Observation LastModified by Organization Detai ls LastModified Time None Recorded Concern Status LastModified by Organization Details LastModified Time None Recorded Advance Directives Directive None Recorded Payers Insurance Date Sequence Insurance Name Policy Number Policy Pepper Covered Member ID Pepper Member ID Guarantor Name 09/11/2018 1 DARELL Luna [id number] Curt Luna Notes Date Note Type Note Provider Name and Address Organization Details Recorded Time 08/15/19 19 text/htm l Low back painReported by PatientHPIFor associated symptoms, patient reportsnumbness (left foot)andtingling (left foot)but reportsno weakness,no numbness,no swelling,no popping/clicking,no bowel incontinence,no urinary retention,no urinary incontinence, andno perineal paresthesia/anesthesia. For location, patient reportsmidline. For duration, patient reportsworse at nighttime. For context, patient reportsstarted without cause. For quality, patient reportsaching,stabbing, andsharp. For pain intensity, patient reportscurrent pain level: 8/10andworst pain level: 9/10. For alleviating factors, patient reportslying down,opioids, andmuscle relaxants. For aggravating factors, patient reportsstandingandwalking. For prior imaging, patient reportsmri (07/16/2018 mri lumbar spine). For lumbar surgery, patient reportsnoneandrecent surgical evaluation: (dr. clarke). For medications history, patient reportsnsaids: (celebrex- min effective),muscle relaxants: (soma- effectiveflexeril- not effective),neuropathics: (denies), andopioid pain medications: (tramadol- effectiveoxycodone- effective). For prior pain management, patient reportsno. Doni Lee MD [address] [place] [address], [address], [facility] 08/14/2018 11:33:31
--- OUTSIDE RECORDS SUMMARY | 2025-05-02 12:00 | XMS_ITS | Clinical Summary ---
Author Organization [facility] Address [address] [place] [address] Care Team Providers Care Mis Manager Name Role Phone Slim Gutierrez MD Primary Care Provider Allergies No known active allergies Medications risperiDONE [...] ANNUAL PHYSICAL 03/05/2018 HEPATITIS C SCREENING 03/05/2018 INFLUENZA VACCINE 01/07/2025 COVID-19 Vaccine ( season) 2025 AAA SCREEN ONCE Completed 09/16/2013 Procedures Procedure [...] acute intra-abdominal or pelvic abnormality. E: 09/16/2013 Movie Actor- ROSALES López Radiologist- TINY GAO Releasing Radiologist- [...] acute intra-abdominal or pelvic abnormality. E: 09/16/2013 Movie Actor- ROSALES López Radiologist- TINY GAO Releasing Radiologist- TINY GAO Released Date Time- 09/16/[address] [facility] ORDERABLES Final Result from Last 3 Months or Most Recently Relevant to Health Maintenance Insurance [facility] Care Teams Mis Manager Relationship Specialty Start Date End Date Slim Gutierrez MD [address] [place] [address] PCP - General Family Medicine 02/24/18
--- OUTSIDE RECORDS SUMMARY | 2025-05-02 12:00 | XMS_ITS | Clinical Summary ---
Author Organization Healthcare Address [facility] [place] [address] Care Team Providers Care Import/Export Agent Name Role Phone Andrew Melgar MD Primary Care Provider [phone] Social History Tobacco Use Types Packs/Day Years [...] Treatment Not on file Insurance ISACC SENIOR [id number] MEDICARE Care Teams Import/Export Agent Relationship Specialty Start Date End Date Andrew Melgar MD [address] [address] [place] [id number] PCP - General 10/20/20
[2025-05-02 12:10] LABS: Hematocrit 40.9 % (42.0-52.0); Hemoglobin 14.0 g/dL (14.1-18.0); Immature Granulocytes % 0.2 %; Mean Corpuscular HGB Conc 34.2 g/dL (31.8-35.4); Mean Corpuscular Hemoglobin 29.3 pg (27.0-31.2); Mean Corpuscular Volume 85.6 fl (80-94); Nucleated Red Blood Cells % 0 %; Platelet Count 264 K/mm3 (142-424); Red Blood Count 4.78 M/mm3 (4.60-6.20); Red Cell Distribution Width-SD 39.1 fL; White Blood Count 6.3 K/mm3 (4.8-10.8)
[2025-05-02 12:26] LABS: Anion Gap 11.6 mEq/L (5-15); Blood Urea Nitrogen 16 mg/dl (9-20); Calcium 9.7 mg/dl (8.4-10.2); Carbon Dioxide 28 mmol/L (22.0-30.0); Chloride 99 mmol/L (98-107); Creatinine,Serum 0.80 mg/dl (0.66-1.25); Estimated Glomerular Filt Rate 97 ml/min (>60); GFR (African American) 117 ML/MIN (>60); Glucose 177 mg/dl (74-100); Potassium 3.6 mmoL/L (3.5-5.1); Sodium 135 mmol/L (136-145)
[2025-05-02 12:38] LABS: Troponin I < 0.01 ng/ml (0.00-0.034)
== END 2025-05-02 23:59 | disposition home or self-care (01) ==
LOC: RT 11:49
PROVIDERS: PCP Internal Medicine; Visit Provider Internal Medicine
DX: R94.31 Abnormal electrocardiogram [ECG] [EKG] (principal); I10 Essential (primary) hypertension; E11.9 Type 2 diabetes mellitus without complications; R07.9 Chest pain, unspecified
CPT/HCPCS: 36415; 80048; 84484; 85025; 93005

== ENCOUNTER 2025-05-02 14:06 | Observation (INO) | payer MEDICARE, SELFPAY ==
[2025-05-02] VITALS (19 sets, daily range): BP systolic 98–148; BP diastolic 63–94; PULSE 60–91; RESP 12–20; TEMP 36.5–36.8; O2SAT 92–98; BMI 28.6
--- NOTE | 2025-05-02 14:36 | P.HP_ITS ---
History of Present Illness *Admission Date: 05/02/25 *Reason for visit:: Chest pain *History of present illness: Jason Luna is a 64-year-old male with a medical history significant for type 2 diabetes, hypertension, GERD, mood disorder who presented from cardiology clinic as a direct admit with 5 days of mid to lower sternal chest pain with left arm tingling. Patient states chest pains began about 5 days ago, sharp in nature without specific radiation but does note intermittent left arm numbness/tingling. He states has been happening at night, and has woken him up from sleep. Not during the day, not related to exertion. No recent changes in diet. No concomitant shortness of breath, dizziness, fever/chills, cough. No known cardiac history, non-smoker. Given these findings, Ria OLIVAREZ with cardiology consulted with me and agreed to admit the patient for further evaluation and management. He was taken to the [facility] and was noted to have Moderate to severe mid LAD disease 60%, no indication for stenting. Recommended CTA chest and medical management with antianginals. CBC, CMP, troponin, EKG overall unremarkable. AGAP 17.8, magnesium 1.3. CTA chest pending at this time. [facility] Disclaimer: The information contained in this section may have been updated after the patient was seen, as this information can be updated by other users. Medical History (Updated 05/02/25 @ 18:09 by Alli Renner MD) Bipolar 1 disorder Abnormal electrocardiogram [ECG] [EKG] Unstable angina pectoris Hypertension Type 2 diabetes mellitus History of diabetes mellitus History of hyperlipidemia Hyperlipidemia Surgical History History of shoulder surgery History of laparoscopic cholecystectomy History of back surgery History of elbow surgery History of knee surgery Family History Other Family history of [place] (myocardial infarction) Family history of coronary artery disease Family history of dementia Social History (Updated 05/02/25 @ 15:08 by Christine Atkinson RN) Smoking Status: Never smoker alcohol intake: former substance use type: marijuana current occupational status: disabled Travel in the last 8 weeks?: None household members: spouse housing: house caffeine: Yes Have you lived/traveled outside US in past 30 days?: No Contact w/someone who lives/traveled outside US past 30 days?: No Exposure to someone with infectious disease in past 14 days?: No Do you have a fever (greater than 100.4 F or 38 C)?: No Have you tested positive for COVID-19?: No Exposed to someone with COVID-19 in past 14 days?: No Do you have a sore throat?: No Do you have a cough?: No Do you have any weakness?: No Are you experiencing any nausea/vomitting?: No Do you have any diarrhea?: No Are you experiencing any unusual bleeding?: No Do you have any muscle aches/pain?: No Do you have any abdominal pain?: No Are you experiencing loss of taste or smell?: No Other Medical History Have you received the Flu Vaccine for this season: No Have you received the Pneumonia Vaccine: Yes Meds Home Medications and Allergies Home Medications ?Medication ?Instructions ?Recorded ?Confirmed ?Type ibuprofen 800 mg tablet 800 mg PO Q8H PRN pain #90 t abs 03/24/24 05/02/25 Rx insulin glargine 100 unit/mL (3 30 unit (0.3 mL) SQ DA KIM dm #15 mL 09/22/24 05/02/25 Rx mL) subcutaneous pen (Basaglar KwikPen U-100 Insulin) risperidone 1 mg tablet See Rx Instructions .Route 0 10/19/24 05/02/25 Rx .COMPLEX #30 tabs atorvastatin 10 mg tablet See Rx Instructions .Route 0 01/07/25 05/02/25 Rx .COMPLEX #90 tabs blood sugar diagnostic (OneTouch #200 ea 01/11/2504/10 Rx Verio test strips) blood-glucose meter #1 ea 01/11/25 05/02/25 Rx lancets 30 gauge (OneTouch #200 ea 01/11/25 05/02/25 R x UltraSoft 2 Lancet) blood sugar diagnostic (Blood #50 ea 01/14/25 05/02/25 Rx Glucose Test strips) blood-glucose meter (OneTouch #1 ea 01/14/25 05/02/25 Rx Verio Flex Start kit) omeprazole 40 mg capsule,delayed See Rx Instructions . Route 01/31/25 05/02/25 Rx release .COMPLEX #90 caps lisinopril 20 See Rx Instructions .Route 0 02/04/25 05/02/25 Rx mg-hydrochlorothiazide 25 mg tablet .COMPLEX #90 tabs metformin 500 mg tablet,extended See Rx Instructions . Route 03/24/25 05/02/25 Rx release 24 hr .COMPLEX #120 tabs blood-glucose meter (OneTouch #1 ea 05/02/25 05/02/25 History Verio Flex Meter) pen needle, diabetic 31 gauge x #1,200 ea 05/02/25 History 3/16 (Ultra-Fine Pen Needle) New Prescriptions to Start Prescriptions: Allergies Allergy/AdvReac Type Severity Reaction Status Date / Time No Known Allergies Allergy Verified 05/02/25 14:58 Exam Data for Last 24 hours I & O for Last 24 hours: Intake & Output 04/29/25 04/30/25 05/01/25 05/02/25 23:59 23:59 23:59 23:59 Weight 95.753 kg Constitutional Constitutional: no acute distress *Routine HEENT Exam Head: Present normocephalic Eye: Present EOMI and PERRL ENT: Present mucous membranes moist *Routine Neck Exam Neck: Present supple; Absent lymphadenopathy *Routine Respiratory Exam Respiratory: Present CTA bilaterally *Routine Cardiovascular Exam Cardiovascular: Present RRR *Routine Abdominal Exam Abdominal: Present soft and normoactive bowel sounds; Absent tenderness *Routine Rectal Exam Rectal:: deferred *Routine Genitalia Exam Genitalia:: deferred *Routine Extremities Exam Extremities: Absent cyanosis, clubbing or edema *Routine Skin Exam Skin: Present warm; Absent rash *Routine Neurological Exam Neurological: Present alert and oriented X3 Assessment and Plan *Assessment and plan (1) Chest pain: Problem Comment: Unstable angina Status: Acute Category: Medical Code(s): R07.9 - Chest pain, unspecified (2) GERD (gastroesophageal reflux disease): Status: Acute Category: Medical Code(s): K21.9 - Gastro-esophageal reflux disease without esophagitis (3) Type 2 diabetes mellitus: Status: Acute Qualifiers: Diabetes mellitus petroleum terminal plant operator insulin use: with [facility] use Diabetes mellitus complication status: without complication Qualified Code(s): E11.9 - Type 2 diabetes mellitus without complications; Z79.4 - senior living (current) use of insulin Category: Medical Code(s): E11.9 - Type 2 diabetes mellitus without complications Plan Jason Luna is a 64-year-old male with a medical history significant for type 2 diabetes, hypertension, GERD, mood disorder who presented from cardiology clinic as a direct admit with 5 days of mid to lower sternal chest pain with left arm tingling. Patient states chest pains began about 5 days ago, sharp in nature without specific radiation but does note intermittent left arm numbness/tingling. He states has been happening at night, and has woken him up from sleep. Not during the day, not related to exertion. No recent changes in diet. No concomitant shortness of breath, dizziness, fever/chills, cough. No known cardiac history, non-smoker. Given these findings, Ria OLIVAREZ with cardiology consulted with me and agreed to admit the patient for further evaluation and management. He was taken to the [facility] and was noted to have Moderate to severe mid LAD disease 60%, no indication for stenting. Recommended CTA chest and medical management with antianginals. CBC, CMP, troponin, EKG overall unremarkable. AGAP 17.8, magnesium 1.3. CTA chest pending at this time. #Chest pain #CAD #GERD ? Presented with 5 days of mid to lower sternal chest pains at night that have woken him. EKG, troponins unremarkable. ? S/p C on 05/02/2025 without occlusive disease requiring stenting. Did have 60% LAD disease for which Dr. Stewart recommended medical management and antianginals. ? Additionally, patient states he has been adherent to his omeprazole but takes it with meals. Advised to take it on empty stomach in the morning. ? A1c 6.9%, LDL 88, TSH normal. ? Started aspirin 81 mg, atorvastatin 40 mg, metoprolol succinate 25 mg. ? Started Protonix 80 mg, equivalent to him home omeprazole dose. ? Follow-up CTA chest. ? Follow-up ECHO report. ? Cardiology consulted, pending further recommendations. #Type 2 diabetes ? Hemoglobin A1c 6.9%. LDSSI, ACHS glucose checks. #Hypertension ? Resume home medications once appropriate. BP stable at this time. #Mood disorder ? Continue home Risperdal once reconciled. Full code DVT prophylaxis: Lovenox 40 mg Home medications: Pending reconciliation.
[2025-05-02 15:03] LABS: Hematocrit 41.4 % (42.0-52.0); Hemoglobin 14.3 g/dL (14.1-18.0); Immature Granulocytes % 0.2 %; Mean Corpuscular HGB Conc 34.5 g/dL (31.8-35.4); Mean Corpuscular Hemoglobin 29.2 pg (27.0-31.2); Mean Corpuscular Volume 84.7 fl (80-94); Nucleated Red Blood Cells % 0 %; Platelet Count 272 K/mm3 (142-424); Red Blood Count 4.89 M/mm3 (4.60-6.20); Red Cell Distribution Width-SD 37.8 fL; White Blood Count 6.7 K/mm3 (4.8-10.8)
[2025-05-02 15:16] LABS: Cholesterol 159 mg/dl (140-200); HDL Cholesterol 47 mg/dl (40-60); Triglycerides 121 mg/dl (30-150)
[2025-05-02 15:18] LABS: Alanine Aminotransferase 44 U/L (12-78); Albumin Level 4.9 g/dl (3.5-5.0); Albumin/Globulin Ratio 1.8 (1.1-1.8); Alkaline Phosphatase 75 U/L (38-126); Anion Gap 11.4 mEq/L (5-15); Aspartate Amino Transferase 35 U/L (17-59); Bilirubin,Total 0.6 mg/dl (0.2-1.3); Blood Urea Nitrogen 15 mg/dl (9-20); Calcium 9.5 mg/dl (8.4-10.2); Carbon Dioxide 24 mmol/L (22.0-30.0); Chloride 102 mmol/L (98-107); Creatinine Clearance Estimated 100 mL/min (50-200); Creatinine,Serum 0.70 mg/dl (0.66-1.25); Estimated Glomerular Filt Rate 113 ml/min (>60); GFR (African American) 137 ML/MIN (>60); Globulin 2.8 g/dL (1.3-3.2); Glucose 136 mg/dl (74-100); Potassium 3.4 mmoL/L (3.5-5.1); Sodium 134 mmol/L (136-145); Total Protein,Serum 7.7 g/dl (6.3-8.2)
[2025-05-02] MEDS: ACETAMINOPHEN 325MG TAB 650 MG PO (15:18)
[2025-05-02 15:19] LABS: Magnesium 1.3 mg/dl (1.6-2.3)
--- NOTE | 2025-05-02 15:19 | IR_ITS ---
APPROVED REPORT Patient Location: Inpatient Security Officer: Obdulio Cheatham, RT (R) PROCEDURES Left heart catheterization Left ventriculogram Selective coronary angiogram INDICATION Unstable angina Informed consent was obtained prior to the procedure. COMPLICATIONS None Estimated Blood Loss: Less than 10 mls TECHNIQUE One percent lidocaine used to anesthetize the right anterior aspect of the wrist. The right radial artery was accessed via the Seldinger technique. A 6 Y[place]ut sheath was placed in the right radial artery. 2.5 mg of Verapamil, 800 mcg of nitroglycerin, 1mg Lidocaine and 5000 U Heparin were given through the arterial sheath. The JL3 catheter was also used to perform left heart catheterization, left ventriculogram and selective coronary angiogram. At the end of the procedure the sheath was removed good hemostasis was achieved using Traclet band, patient was transferred to the postop holding area in stable condition. ANGIOGRAPHIC RESULTS The left main artery Normal The left anterior descending artery Has proximal 10 to 20% luminal regularities with a mid vessel concentric 40% stenosis followed by an additional concentric 60% stenosis The circumflex artery Nondominant has a mid vessel concentric 30% stenosis The right coronary artery Is dominant and has proximal 10 to 20% stenosis with a mid vessel 40% stenosis and distal 10% luminal regularities The HAIR ventriculogram reveals Normal 65% The left ventricular end-diastolic pressure 20 mmHg IMPRESSION Moderate to severe disease in the mid LAD accompanied by TEZ III flow which is best managed medically at this time Normal ejection fraction Borderline high LVEDP PLAN 1. Start antianginal medications 2. Consider CTA-PA gram to evaluate for noncardiac symptoms and/or possible pulmonary embolism 3. Although the mid LAD does have moderate to severe disease it is unlikely this lesion is producing unstable angina symptoms. Nevertheless I still recommend maximizing antianginal medications 4. Aggressive risk factor modification with an LDL less than 55 to be achieved with high intensity statin 5. Cardiac rehabilitation 6. Avoidance of tobacco products Electronically signed by : Venkatesh Stewart MD 05/02/2025 16:02:25
--- NOTE | 2025-05-02 15:26 | PC.NURSE ---
patient arrived by wheelchair at 1415
--- NOTE | 2025-05-02 15:26 | PC.NURSE ---
patient signed consent for left heart cath with possible intervention
[2025-05-02 15:29] LABS: Chloride 100 mmol/L (98-107)
[2025-05-02 15:30] LABS: Potassium 3.8 mmoL/L (3.5-5.1); Sodium 141 mmol/L (136-145)
[2025-05-02 15:32] LABS: Blood Urea Nitrogen 15 mg/dl (9-20)
[2025-05-02 15:32] LABS: Troponin I < 0.01 ng/ml (0.00-0.034)
[2025-05-02 15:33] LABS: Anion Gap 17.8 mEq/L (5-15); Calcium 9.7 mg/dl (8.4-10.2); Carbon Dioxide 27 mmol/L (22.0-30.0); Creatinine Clearance Estimated 100 mL/min (50-200); Creatinine,Serum 0.70 mg/dl (0.66-1.25); Estimated Glomerular Filt Rate 113 ml/min (>60); GFR (African American) 137 ML/MIN (>60); Glucose 131 mg/dl (74-100)
[2025-05-02] MEDS: MIDAZOLAM HCL 1MG/ML 5ML VIAL 1 MG IV (15:37)
--- NOTE | 2025-05-02 15:37 | PC.NURSE ---
1530 patient gone to cathlab
[2025-05-02] MEDS: FENTANYL 100MCG/2ML VIAL 50 MCG IV (15:38)
[2025-05-02] MEDS: HEPARIN 1,000 UNITS/500ML NS (CATH LAB) 3000 UNIT IV (15:38)
[2025-05-02] MEDS: 0.9 % SODIUM CHLORIDE 500 ML 25 ML IV (15:38)
[2025-05-02] MEDS: NITROGLYCERIN 800MCG/8ML SYR (CATH LAB) 800 MCG IA (15:38)
[2025-05-02] MEDS: LIDOCAINE 1% 10ML MDV 10 ML IJ (15:38)
[2025-05-02] MEDS: HEPARIN 1,000 UNITS/ML 10ML VIAL (CATH LAB) 5000 UNIT IV (15:39)
[2025-05-02] MEDS: VERAPAMIL 2.5MG/ML 2ML VIAL 2.5 MG IV (15:39)
[2025-05-02 15:46] LABS: Thyroid Stimulating Hormone 1.46 uIU/mL (0.465-4.68)
--- NOTE | 2025-05-02 15:55 | CA_ITS ---
APPROVED REPORT EXAM: Comprehensive 2D, Doppler, and color-flow Echocardiogram Incinerator Attendant: Martina Snell RVT Ht: 6 ft 0 in Wt: 211lbs BSA: 2.18 BP: 106/66 mmHg Indications: CHEST PAIN 2D Dimensions LA Volume 28.10 mL LA Volume Index 12.89 mL/m2 (M/F) 16-34 M-Mode Dimensions RVDd 2.25 cm (0.9-2.6) LA Diam 3.21 cm (1.9-4.0) LVDd 5.72 cm (3.5-5.7) LVDs 4.04 cm (3.5-5.7) IVSd 0.82 cm (0.6-1.1) PWd 0.64 cm (0.6-1.1) EF (Teich) 55.50% FS 29.40% EDV (Teich) 161.30 mL TAPSE 2.04 (<1.7) ESV (Teich) 71.70 mL LV Diastology E Decel Time 197 (160-240 msec) E/A Ratio 0.9 Aortic Valve BAMBI Index 1.04 cm2/m2 AoV Peak Tucker. 111.0 (50-130 cm/s) AO Peak GR. 4.90 mmHg AO Mean GR. 3.20 (<5 mmHg) AO VTI 19.5 (18-25 cm) BAMBI (VTI) 2.31 (2.5-4.5 cm2) Mitral Valve MV E Max Tucker. 55.0 (40-130 cm/s) MV A Velocity 61.0 (40-130 cm/s) E/A Ratio 0.91 MV PHT 58.0 ms Pulmonary Valve PV Peak Velocity 69.0 (50-150 cm/s) Tricuspid Valve TR P. Velocity 225.00 cm/s RAP Estimate 8.00 mmHg RVSP 28.30 mmHg Left Ventricle The left ventricle is normal size. Left ventricular systolic function is normal. The left ventricular ejection fraction is within the normal range. There is increased left ventricular wall thickness. There is normal LV segmental wall motion. The left ventricular diastolic function is indeterminate. LVEF is 55%. Right Ventricle Right ventricle is moderately dilated. The right ventricular systolic function is moderately reduced. Atria Left atrium is mildly dilated. Right atrium is mildly dilated. There is no color Doppler evidence of interatrial shunt. Aortic Valve The aortic valve is mildly thickened. There is no hemodynamically significant aortic valvular stenosis. No aortic regurgitation is present. Mitral Valve The mitral valve is normal in structure. No evidence of mitral valve stenosis. Trace mitral regurgitation is present. Tricuspid Valve The tricuspid valve leaflets are thin and pliable. Mild tricuspid regurgitation. RVSP is 20-25 mmHg. Pulmonic Valve The pulmonary valve is grossly normal in structure. Trace pulmonic valve regurgitation is present. Great Vessels The aortic root is normal in size. IVC is normal in size and collapses >50% with inspiration. Pericardium There is a small-sized, anterior pericardial effusion. The largest pocket measures 0.3 cm in diastole. No echo indications of tamponade. Other Information Study Quality: Fair Conclusion Normal biventricular systolic function. Moderate RV dilation with moderate reduction in RV function. Mild biatrial dilation. Mild TR. Small-sized, anterior pericardial effusion. The largest pocket measures 0.3 cm in diastole. No echo indications of tamponade. Electronically signed by : Luana Huerta MD 05/02/2025 23:37:27
--- NOTE | 2025-05-02 16:22 | PC.NURSE ---
patient arrived back to the unit at 1615 via stretcher from the cathlab
[2025-05-02 16:40] LABS: POC Glucose,Bedside 121 gm/dL (70-110)
[2025-05-02 17:02] LABS: Hemoglobin A1C 6.9 % (4.0-6.0)
[2025-05-02] MEDS: MAGNESIUM SULFATE IN WATER 2 GM/50 ML PIGGYBACK IV ×3 (17:25→19:01)
--- NOTE | 2025-05-02 17:58 | CT_ITS ---
PROCEDURE INFORMATION: Exam: CTA Chest With Contrast Exam date and time: 05/02/2025 8:33 PM Age: 64 years old Clinical indication: Pain; Chest pressure; Additional info: Chest pain TECHNIQUE: Imaging protocol: Computed tomographic angiography of the chest with contrast. Exam focused on the arteries. 3D rendering (Not supervised by radiologist): MIP and/or 3D reconstructed images were created by the technologist. Radiation optimization: All CT scans at this facility use at least one of these dose optimization techniques: automated exposure control; mA and/or kV adjustment per patient size (includes targeted exams where dose is matched to clinical indication); or iterative reconstruction. Contrast material: ISOVUE; Contrast volume: 70 ml; Contrast route: INTRAVENOUS (IV); COMPARISON: CR XR CHEST 2V 02/06/2021 9:58 AM FINDINGS: Pulmonary arteries: No acute pulmonary embolus Aorta: Unremarkable. No aortic aneurysm. No aortic dissection. 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 No pneumothorax. No pleural effusion. Heart: Borderline cardiomegaly Coronary arteries: Calcified coronary arteries Lymph nodes: Left hilar calcified lymph nodes Gallbladder and biliary ducts: Cholecystectomy Bones/joints: Unremarkable. No acute fracture. Soft tissues: Unremarkable. IMPRESSION: 1. No visible acute pulmonary embolus 2. No visible acute intrathoracic abnormality.
--- NOTE | 2025-05-02 19:03 | HMH.ITSTN ---
This energy trading analyst called the ICU seeing if this patient was ready to come down for their CT scan. AGNES Valentine stated that the patient has a TR band on and they are waiting for it be removed before coming to scan. Someone will call radiology when the patient is able to come down.
--- NOTE | 2025-05-02 20:30 | PC.NURSE ---
pt to CT at this time
[2025-05-02] MEDS: IOPAMIDOL-370 (76%);100ML BOTTLE 70 ML IV (20:39)
[2025-05-02] MEDS: 0.9 % SODIUM CHLORIDE 50 ML VIAL IV (20:39)
[2025-05-02] MEDS: SODIUM CHLORIDE 0.9% 10ML SYR (RAD ONLY) 10 ML IV (20:39)
[2025-05-02 21:09] LABS: POC Glucose,Bedside 145 gm/dL (70-110)
[2025-05-02] MEDS: HYDROCODONE/APAP 5/325 MG TABLET 2 TAB PO (21:11)
[2025-05-02] MEDS: ATORVASTATIN 40MG TABLET 40 MG PO (21:12)
[2025-05-02] MEDS: PANTOPRAZOLE 40MG TABLET 80 MG PO (21:12)
[2025-05-02] MEDS: FAMOTIDINE 20MG TABLET 20 MG PO (21:12)
[2025-05-03] VITALS: BP 123/78; PULSE 58; PULSE 59; RESP 12; TEMP 36.4; O2SAT 94
[2025-05-03 04:00] VITALS: BP 119/84; PULSE 57; PULSE 61; RESP 12; TEMP 36.6; O2SAT 95; BMI 28.5
[2025-05-03] MEDS: HYDROCODONE/APAP 5/325 MG TABLET 2 TAB PO (05:15)
[2025-05-03 05:28] LABS: POC Glucose,Bedside 128 gm/dL (70-110)
[2025-05-03 06:16] LABS: Hematocrit 38.8 % (42.0-52.0); Hemoglobin 13.2 g/dL (14.1-18.0); Immature Granulocytes % 0.2 %; Mean Corpuscular HGB Conc 34.0 g/dL (31.8-35.4); Mean Corpuscular Hemoglobin 29.6 pg (27.0-31.2); Mean Corpuscular Volume 87.0 fl (80-94); Nucleated Red Blood Cells % 0 %; Platelet Count 238 K/mm3 (142-424); Red Blood Count 4.46 M/mm3 (4.60-6.20); Red Cell Distribution Width-SD 40.4 fL; White Blood Count 5.7 K/mm3 (4.8-10.8)
[2025-05-03 06:21] LABS: Albumin Level 4.1 g/dl (3.5-5.0); Carbon Dioxide 26 mmol/L (22.0-30.0)
--- NOTE | 2025-05-03 06:24 | PC.NURSE ---
Pt has c/o headache t/o this shift. Medicated PRN per AUG. No other complaints. Denies chest pain. Right radial cath site dressing c/d/i. radial pulses equal. VSS. NSR-sinus kiley on tele with occasional PVS's noted.
--- NOTE | 2025-05-03 07:47 | EXP.DC.SUM ---
General Admission date:: 05/02/25 Discharge date: 05/03/25 HPI HPI HPI: Jason Luna is a 64-year-old male with a medical history significant for type 2 diabetes, hypertension, GERD, mood disorder who presented from cardiology clinic as a direct admit with 5 days of mid to lower sternal chest pain with left arm tingling. Patient states chest pains began about 5 days ago, sharp in nature without specific radiation but does note intermittent left arm numbness/tingling. He states has been happening at night, and has woken him up from sleep. Not during the day, not related to exertion. No recent changes in diet. No concomitant shortness of breath, dizziness, fever/chills, cough. No known cardiac history, non-smoker. Given these findings, Ria OLIVAREZ with cardiology consulted with me and agreed to admit the patient for further evaluation and management. He was taken to the [facility] and was noted to have Moderate to severe mid LAD disease 60%, no indication for stenting. Recommended CTA chest and medical management with antianginals. CBC, CMP, troponin, EKG overall unremarkable. AGAP 17.8, magnesium 1.3. CTA chest pending at this time. Hospital Course Hospital Course Hospital Course: Jason Luna is a 64-year-old male with a medical history significant for type 2 diabetes, hypertension, GERD, mood disorder who presented from cardiology clinic as a direct admit with 5 days of mid to lower sternal chest pain with left arm tingling. Patient states chest pains began about 5 days ago, sharp in nature without specific radiation but does note intermittent left arm numbness/tingling. He states has been happening at night, and has woken him up from sleep. Not during the day, not related to exertion. No recent changes in diet. No concomitant shortness of breath, dizziness, fever/chills, cough. No known cardiac history, non-smoker. Given these findings, cardiology consult to hospital medicine for admission and further evaluation. Patient was takento the [facility] and was noted to have Moderate to severe mid LAD disease 60%, no indication for stenting. Recommended CTA chest and medical management with antianginals. CBC, CMP, troponin, EKG overall unremarkable. AGAP 17.8, magnesium 1.3. CTA of chest did not show any PEs. Patient's pain improved during admission. Suspect alternate noncardiac etiology such as GERD. Monitor for response to PPI. Stable to discharge home. If no improvement in the next week or 2, consider referral to GI for further evaluation. Problems addressed as follows: #Chest pain #CAD #GERD ? Presented with 5 days of mid to lower sternal chest pains at night that have woken him. EKG, troponins unremarkable. S/p LHC on 05/02/2025 without occlusive disease requiring stenting. Did have 60% LAD disease for which Dr. Stewart recommended medical management and antianginals. Additionally, patient states he has been adherent to his omeprazole but takes it with meals. Advised to take it on empty stomach in the morning. A1c 6.9%, LDL 88, TSH normal. Started aspirin 81 mg, atorvastatin 40 mg, metoprolol succinate 25 mg. Started Protonix 80 mg, equivalent to home omeprazole dose.. CTA of the chest was negative. Echo normal. Cardiology recommended alternative etiology for chest pain. Follow-up in a week or 2 with cardiology for reevaluation. Continue PPI at discharge. If continues to have pain, consider GI consult as an outpatient. #Type 2 diabetes ? Hemoglobin A1c 6.9%. Well-controlled. Resume metformin twice daily at discharge along with insulin glargine 30 units daily. #Hypertension ? Resume home medications for blood pressure. See med rec for details. #Mood disorder ? Continue home Risperdal. Total time spent on discharge 32 minutes in counseling, documentation, chart review, and direct care with patient. Exam Data for Last 24 hours Vital signs and Labs for Last 24 Hours: Temp Pulse Resp BP Pulse Ox O2 Del Method 97.9 F 61 12 119/84 95 Room Air 05/03/25 04:00 05/03/25 04:00 05/03/25 04:00 05/03/25 04:00 05/03/25 04:00 05/03/25 06:52 Laboratory Results - last 24 hr 05/02/25 14:23: WBC 6.7, RBC 4.89, Hgb 14.3, Hct 41.4 L, MCV 84.7, MCH 29.2, MCHC 34.5, RDW 12.5, Plt Count 272, MPV 10.9 H, Neut % (Auto) 46.2, Lymph % (Auto) 41.7, [place] % (Auto) 11.1 H, Eos % (Auto) 0.3, Baso % (Auto) 0.5, Neut # (Auto) 3.1, Lymph # (Auto) 2.8, [place] # (Auto) 0.7, Eos # (Auto) 0.0, Baso # (Auto) 0.0, Sodium 134 L, Potassium 3.4 L, Chloride 102, Carbon Dioxide 24, Anion Gap 11.4, BUN 15, Creatinine 0.70, Estimated Creat Clear 100, Estimated GFR 113, Est GFR ( Amer) 137, Glucose 136 H D, Hemoglobin A1c 6.9 H, Calcium 9.5, Magnesium 1.3 L, Total Bilirubin 0.6, AST 35, ALT 44, Alkaline Phosphatase 75, Troponin I < 0.01, Total Protein 7.7, Albumin 4.9, Globulin 2.8, Albumin/Globulin Ratio 1.8, Triglycerides 121, Cholesterol 159, LDL Cholesterol Direct 88.37 L, VLDL Cholesterol 24, HDL Cholesterol 47, Cholesterol/HDL Ratio 3.4, TSH 1.46 05/02/25 15:01: Sodium 141, Potassium 3.8, Chloride 100, Carbon Dioxide 27, Anion Gap 17.8 H, BUN 15, Creatinine 0.70, Estimated Creat Clear 100, Estimated GFR 113, Est GFR ( Amer) 137, Glucose 131 H, Calcium 9.7 05/02/25 16:33: POC Glucose 121 H 05/02/25 20:58: POC Glucose 145 H 05/03/25 05:02: WBC 5.7, RBC 4.46 L, Hgb 13.2 L, Hct 38.8 L, MCV 87.0, MCH 29.6, MCHC 34.0, RDW 12.7, Plt Count 238, MPV 10.7 H, Neut % (Auto) 33.5 L, Lymph % (Auto) 51.3 H, [place] % (Auto) 13.4 H, Eos % (Auto) 1.2, Baso % (Auto) 0.4, Neut # (Auto) 1.9, Lymph # (Auto) 2.9, [place] # (Auto) 0.8, Eos # (Auto) 0.1, Baso # (Auto) 0.0, Carbon Dioxide 26, Albumin 4.1 D 05/03/25 05:19: POC Glucose 128 H I & O for Last 24 hours: Intake & Output 04/30/25 05/01/25 05/02/25 05/03/25 23:59 23:59 23:59 23:59 Intake Total 510 / 510 Output Total 450 / 450 500 / 500 Balance 60 / 60 -500 / -500 Weight 95.753 kg 95.753 kg Constitutional Constitutional: no acute distress, average body habitus and cooperative *Routine HEENT Exam Head: Present normocephalic Eye: Present EOMI and PERRL ENT: Present mucous membranes moist *Routine Neck Exam Neck: Present supple; Absent lymphadenopathy *Routine Respiratory Exam Respiratory: Present CTA bilaterally; Absent rhonchi or wheezes *Routine Cardiovascular Exam Cardiovascular: Present RRR *Routine Abdominal Exam Abdominal: Present soft and normoactive bowel sounds; Absent tenderness *Routine Rectal Exam Patient deferred: visual exam *Routine Exam Patient deferred: penile exam *Routine Extremities Exam Extremities: Absent cyanosis, clubbing or edema *Routine Skin Exam Skin: Present warm; Absent rash *Routine Neurological Exam Neurological: Present alert, oriented X3 and moving all extremities; Absent altered mental status Results Data Completed and Pending Labs on day of discharge: Labs from last 24 hours 05/03/25 05/03/25 05/02/25 05:19 05:02 20:58 WBC 5.7 RBC 4.46 L Hgb 13.2 L Hct 38.8 L MCV 87.0 MCH 29.6 MCHC 34.0 RDW 12.7 Plt Count 238 MPV 10.7 H Neut % (Auto) 33.5 L Lymph % (Auto) 51.3 H [place] % (Auto) 13.4 H Eos % (Auto) 1.2 Baso % (Auto) 0.4 Neut # (Auto) 1.9 Lymph # (Auto) 2.9 [place] # (Auto) 0.8 Eos # (Auto) 0.1 Baso # (Auto) 0.0 Sodium Potassium Chloride Carbon Dioxide 26 Anion Gap BUN Creatinine Estimated Creat Clear Estimated GFR Est GFR ( Amer) Glucose POC Glucose 128 H 145 H Hemoglobin A1c Calcium Magnesium Total Bilirubin AST ALT Alkaline Phosphatase Troponin I Total Protein Albumin 4.1 D Globulin Albumin/Globulin Ratio Triglycerides Cholesterol LDL Cholesterol Direct VLDL Cholesterol HDL Cholesterol Cholesterol/HDL Ratio TSH 05/02/25 05/02/25 05/02/25 16:33 15:01 14:23 WBC 6.7 RBC 4.89 Hgb 14.3 Hct 41.4 L MCV 84.7 MCH 29.2 MCHC 34.5 RDW 12.5 Plt Count 272 MPV 10.9 H Neut % (Auto) 46.2 Lymph % (Auto) 41.7 [place] % (Auto) 11.1 H Eos % (Auto) 0.3 Baso % (Auto) 0.5 Neut # (Auto) 3.1 Lymph # (Auto) 2.8 [place] # (Auto) 0.7 Eos # (Auto) 0.0 Baso # (Auto) 0.0 Sodium 141 134 L Potassium 3.8 3.4 L Chloride 100 102 Carbon Dioxide 27 24 Anion Gap 17.8 H 11.4 BUN 15 15 Creatinine 0.70 0.70 Estimated Creat Clear 100 100 Estimated GFR 113 113 Est GFR ( Amer) 137 137 Glucose 131 H 136 H D POC Glucose 121 H Hemoglobin A1c 6.9 H Calcium 9.7 9.5 Magnesium 1.3 L Total Bilirubin 0.6 AST 35 ALT 44 Alkaline Phosphatase 75 Troponin I < 0.01 Total Protein 7.7 Albumin 4.9 Globulin 2.8 Albumin/Globulin Ratio 1.8 Triglycerides 121 Cholesterol 159 LDL Cholesterol Direct 88.37 L VLDL Cholesterol 24 HDL Cholesterol 47 Cholesterol/HDL Ratio 3.4 TSH 1.46 DS: Diagnosis Discharge Diagnosis (1) Chest pain: Status: Acute Code(s): R07.9 - Chest pain, unspecified Problem details: Unstable angina (2) GERD (gastroesophageal reflux disease): Status: Acute Code(s): K21.9 - Gastro-esophageal reflux disease without esophagitis (3) Type 2 diabetes mellitus: Status: Acute Code(s): E11.9 - Type 2 diabetes mellitus without complications Qualifiers: Diabetes mellitus complication status: without complication Diabetes mellitus joint terminal attack controller insulin use: with joint terminal attack controller use Qualified Code(s): E11.9 - Type 2 diabetes mellitus without complications; Z79.4 - USP (current) use of insulin Meds Home Medications and Allergies Home Medications ?Medication ?Instructions ?Recorded ?Confirmed ?Type blood sugar diagnostic (One PublicTouch #200 ea 01/11/25 05/02/25 Rx Verio test strips) blood-glucose meter #1 ea 01/11/25 05/02/25 Rx lancets 30 gauge (OneTouch #200 ea 01/11/25 05/02/25 Rx UltraSoft 2 Lancet) blood sugar diagnostic (Blood #50 ea 01/14/25 05/02/25 Rx Glucose Test strips) blood-glucose meter (OneTouch #1 ea 01/14/25 05/02/25 Rx Verio Flex Start kit) blood-glucose meter (OneTouch #1 ea 05/02/25 05/02/25 History Verio Flex Meter) pen needle, diabetic 31 gauge x #1,200 ea 05/02/25 05/02/25 History 3/16 (Ultra-Fine Pen Needle) atorvastatin 40 mg tablet 40 mg PO HS 30 days #30 tabs 05/03/25 Rx famotidine 20 mg tablet 20 mg PO BID 30 days #60 tabs 05/03/25 Rx insulin glargine 100 unit/mL (3 30 unit SQ DAILY 05/03/25 05/02/25 History mL) subcutaneous pen (Basaglar KwikPen U-100 Insulin) lisinopril 20 1 tab PO DAILY 05/03/25 05/03/25 History mg-hydrochlorothiazide 25 mg tablet metformin 500 mg tablet,extended 1,000 mg PO BID 05/03/25 05/03/25 History release 24 hr metoprolol succinate 25 mg 25 mg PO DAILY 30 days #30 tabs 05/03/25 Rx tablet,extended release 24 hr omeprazole 40 mg capsule,delayed 40 mg PO DAILY 05/03/25 05/03/25 History release risperidone 1 mg tablet 1 mg PO DAILY 05/03/25 05/03/25 History New Prescriptions to Start Prescriptions: atorvastatin Dave Valle famotidine Dave Valle metoprolol succinate Dave Valle Allergies Allergy/AdvReac Type Severity Reaction Status Date / Time No Known Allergies Allergy Verified 05/02/25 14:58 Discharge Plan Disposition Patient Disposition: Home, Self-Care Condition: Fair Follow up Plan Follow up with: Andrew Melgar MD [Primary Care Provider, Medical] - 05/10/25 2:15 pm Venkatesh Stewart MD [Staff Physician, Cardiology] - 05/19/25 2:15 pm Prescriptions/Medication Reconciliation: New atorvastatin 40 mg Tablet 40 mg PO HS 30 Days Qty: 30 0RF famotidine 20 mg Tablet 20 mg PO BID 30 Days Qty: 60 0RF metoprolol succinate 25 mg Tablet Extended Release 24 Hr 25 mg PO DAILY 30 Days Qty: 30 0RF Continued (DME) blood-glucose meter [OneTouch Verio Flex meter] Misc See Rx Instructions .ROUTE DIRECTED Qty: 1 Rx Instructions: As directed (DME) pen needle, diabetic [Ultra-Fine Pen Needle] 31 gauge x 3/16 needle See Rx Instructions .ROUTE DIRECTED Qty: 1200 Rx Instructions: As directed (DME) blood-glucose meter Kit See Rx Instructions .Route Qty: 1 0RF Rx Instructions: As directed (DME) lancets [OneTouch UltraSoft 2 Lancet] 30 gauge misc See Rx Instructions .Route Qty: 200 5RF Rx Instructions: TEST SUGAR 2 times a day (DME) OneTouch Verio test strips Strip See Rx Instructions .Route Qty: 200 3RF Rx Instructions: Check blood sugar twice a day (DME) blood-glucose meter [OneTouch Verio Flex Start] Kit See Rx Instructions .Route Qty: 1 0RF Rx Instructions: As directed (DME) Blood Glucose Test Strip See Rx Instructions .Route Qty: 50 5RF Rx Instructions: As directed CHECK SUGAR TWICE DAILY omeprazole 40 mg capsule,delayed release(DR/EC) 40 mg PO DAILY lisinopril-hydrochlorothiazide 20-25 mg tablet 1 tab PO DAILY metformin 500 mg tablet extended release 24 hr 1,000 mg PO BID risperidone 1 mg tablet 1 mg PO DAILY insulin glargine [Basaglar KwikPen U-100 Insulin] 100 unit/mL (3 mL) insulin pen 30 unit SQ DAILY Discontinued atorvastatin 10 mg tablet 10 mg PO HS Problem Reconciliation Problems Reviewed?: Yes Patient Discharge Instructions ACTIVITY: Continue current activity DIET: continue same diet Patient Instructions: DI for Gastroesophageal Reflux Disease (GERD), DI for Heartburn, DI for Atypical Chest Pain, DI for Chest Pain, GERD Diet Print Language: Finnish Providers Primary Care Provider: Andrew Melgar Admit Provider: Venkatesh Stewart Attending Provider: Alli Renner
[2025-05-03 08:00] VITALS: BP 164/90; PULSE 72; PULSE 73; PULSE 84; RESP 18; TEMP 36.4; O2SAT 97
--- NOTE | 2025-05-03 08:11 | HMH.PHAINT1 ---
Pharmacy Intervention Comments: MEDICATION RECONCILIATION COMPLETED ON PATIENT USING EXTERNAL FILL HISTORY FROM PHARMACY. -SADI MANDEL, LALOD
[2025-05-03] MEDS: FAMOTIDINE 20MG TABLET 20 MG PO (08:46)
[2025-05-03] MEDS: ASPIRIN EC 81MG TABLET 81 MG PO (08:46)
[2025-05-03] MEDS: METOPROLOL SUCCINATE XL 25MG TABLET 25 MG PO (08:46)
[2025-05-03] MEDS: PNEUMOVAX 25MCG/0.5ML VIAL 0.5 ML IM (10:50)
[2025-05-03 10:57] LABS: Alanine Aminotransferase 49 U/L (12-78); Albumin/Globulin Ratio 1.6 (1.1-1.8); Alkaline Phosphatase 64 U/L (38-126); Anion Gap 8.6 mEq/L (5-15); Aspartate Amino Transferase 49 U/L (17-59); Bilirubin,Total 0.6 mg/dl (0.2-1.3); Blood Urea Nitrogen 15 mg/dl (9-20); Calcium 8.8 mg/dl (8.4-10.2); Chloride 103 mmol/L (98-107); Creatinine Clearance Estimated 100 mL/min (50-200); Creatinine,Serum 0.80 mg/dl (0.66-1.25); Estimated Glomerular Filt Rate 97 ml/min (>60); GFR (African American) 117 ML/MIN (>60); Globulin 2.5 g/dL (1.3-3.2); Glucose 115 mg/dl (74-100); Magnesium 2.3 mg/dl (1.6-2.3); Potassium 3.6 mmoL/L (3.5-5.1); Sodium 134 mmol/L (136-145); Total Protein,Serum 6.6 g/dl (6.3-8.2)
--- NOTE | 2025-05-03 11:25 | EXP.CARD.CON ---
History of Present Illness History of Present Illness Consult date: 05/03/25 Consult reason: chest pain Chief complaint: chest pain History of present illness: 64-year-old white male referred to our office as an outpatient yesterday by his PCP for evaluation of 5 days worsening chest pain. He describes substernal pressure and heaviness like an elephant sitting on his chest. Symptoms were initially episodic and then had become constant and more severe. Given his CV risk factors including age, hypertension, hypercholesterolemia, insulin-dependent diabetes he was deemed high risk and was admitted for urgent left heart cath. His heart cath revealed nonobstructive disease but he was admitted overnight for observation and to rule out further etiologies. 2D echo showed moderate RV dilation but normal EF and no significant valve disease. CT a chest was negative for PE. I am seeing patients following morning and he reports his symptoms are significantly better. He is unclear what caused them. He does have a history of GERD and takes PPI daily. He states he feels ready for discharge home. [facility] Disclaimer: The information contained in this section may have been updated after the patient was seen, as this information can be updated by other users. Medical History Bipolar 1 disorder Abnormal electrocardiogram [ECG] [EKG] Unstable angina pectoris Hypertension Type 2 diabetes mellitus History of diabetes mellitus History of hyperlipidemia Hyperlipidemia Surgical History History of shoulder surgery History of laparoscopic cholecystectomy History of back surgery History of elbow surgery History of knee surgery Family History Other Family history of PR (myocardial infarction) Family history of coronary artery disease Family history of dementia Social History Smoking Status: Never smoker alcohol intake: former substance use type: marijuana current occupational status: disabled Travel in the last 8 weeks?: None household members: spouse housing: house caffeine: Yes Review of Systems Constitutional Constitutional: Denies fatigue and Denies weakness Eyes Eyes: Denies loss of vision ENT Ears, Nose, Mouth, and Throat: Denies hearing loss and Denies vertigo *Cardiovascular Cardiovascular: Denies chest pain, Denies dyspnea and Denies syncope *Respiratory Respiratory: Denies cough and Denies dyspnea *Gastrointestinal Gastrointestinal: Denies change in stool character, Denies nausea and Denies vomiting *Genitourinary Genitourinary: Denies difficulty urinating *Musculoskeletal Musculoskeletal: Denies muscle weakness Integumentary/Breasts Skin/Breast: Denies changing lesions *Neurologic Neurologic: Denies loss of vision, Denies syncope, Denies vertigo and Denies weakness Endocrine Endocrine: Denies fatigue Exam Data for Last 24 hours Vital signs and Labs for Last 24 Hours: Temp Pulse Resp BP Pulse Ox O2 Del Method 97.6 F 73 18 164/90 H 97 Room Air 05/03/25 08:00 05/03/25 08:00 05/03/25 08:00 05/03/25 08:00 05/03/25 08:00 05/03/25 09:00 Laboratory Results - last 24 hr 05/02/25 14:23: WBC 6.7, RBC 4.89, Hgb 14.3, Hct 41.4 L, MCV 84.7, MCH 29.2, MCHC 34.5, RDW 12.5, Plt Count 272, MPV 10.9 H, Neut % (Auto) 46.2, Lymph % (Auto) 41.7, [place] % (Auto) 11.1 H, Eos % (Auto) 0.3, Baso % (Auto) 0.5, Neut # (Auto) 3.1, Lymph # (Auto) 2.8, [place] # (Auto) 0.7, Eos # (Auto) 0.0, Baso # (Auto) 0.0, Sodium 134 L, Potassium 3.4 L, Chloride 102, Carbon Dioxide 24, Anion Gap 11.4, BUN 15, Creatinine 0.70, Estimated Creat Clear 100, Estimated GFR 113, Est GFR ( Amer) 137, Glucose 136 H D, Hemoglobin A1c 6.9 H, Calcium 9.5, Magnesium 1.3 L, Total Bilirubin 0.6, AST 35, ALT 44, Alkaline Phosphatase 75, Troponin I < 0.01, Total Protein 7.7, Albumin 4.9, Globulin 2.8, Albumin/Globulin Ratio 1.8, Triglycerides 121, Cholesterol 159, LDL Cholesterol Direct 88.37 L, VLDL Cholesterol 24, HDL Cholesterol 47, Cholesterol/HDL Ratio 3.4, TSH 1.46 05/02/25 15:01: Sodium 141, Potassium 3.8, Chloride 100, Carbon Dioxide 27, Anion Gap 17.8 H, BUN 15, Creatinine 0.70, Estimated Creat Clear 100, Estimated GFR 113, Est GFR ( Amer) 137, Glucose 131 H, Calcium 9.7 05/02/25 16:33: POC Glucose 121 H 05/02/25 20:58: POC Glucose 145 H 05/03/25 05:02: WBC 5.7, RBC 4.46 L, Hgb 13.2 L, Hct 38.8 L, MCV 87.0, MCH 29.6, MCHC 34.0, RDW 12.7, Plt Count 238, MPV 10.7 H, Neut % (Auto) 33.5 L, Lymph % (Auto) 51.3 H, [place] % (Auto) 13.4 H, Eos % (Auto) 1.2, Baso % (Auto) 0.4, Neut # (Auto) 1.9, Lymph # (Auto) 2.9, [place] # (Auto) 0.8, Eos # (Auto) 0.1, Baso # (Auto) 0.0, Sodium 134 L, Potassium 3.6, Chloride 103, Carbon Dioxide 26, Anion Gap 8.6, BUN 15, Creatinine 0.80, Estimated Creat Clear 100, Estimated GFR 97, Est GFR ( Amer) 117, Glucose 115 H, Calcium 8.8, Magnesium 2.3 D, Total Bilirubin 0.6, AST 49 D, ALT 49, Alkaline Phosphatase 64, Total Protein 6.6, Albumin 4.1 D, Globulin 2.5, Albumin/Globulin Ratio 1.6 05/03/25 05:19: POC Glucose 128 H I & O for Last 24 hours: Intake & Output 04/30/25 05/01/25 05/02/25 05/03/25 23:59 23:59 23:59 23:59 Intake Total 510 / 510 360 / 360 Output Total 450 / 450 800 / 800 Balance 60 / 60 -440 / -440 Weight 211 lb 1.6 oz 211 lb 1.6 oz Constitutional Constitutional: no acute distress and cooperative *Routine HEENT Exam Eye: Present PERRL *Routine Respiratory Exam Respiratory: Present CTA bilaterally; Absent accessory muscle use, wheezes or crackles *Routine Cardiovascular Exam Cardiovascular: Present RRR, Normal S1 and Normal S2; Absent murmur, gallop or rubs Comments: Right radial cath site normal on inspection and palpation. *Routine Abdominal Exam Abdominal: Present soft; Absent tenderness *Routine Extremities Exam Extremities: Present pulses intact; Absent cyanosis or edema *Routine Skin Exam Skin: Present intact; Absent erythema or wounds *Routine Neurological Exam Neurological: Present alert and oriented X3 Routine Psychiatric Exam Psychiatric: Present cooperative Meds Home Medications and Allergies Home Medications ?Medication ?Instructions ?Recorded ?Confirmed ?Type blood sugar diagnostic (OneTouch #200 ea 01/11/25 05/02/25 Rx Verio test strips) blood-glucose meter #1 ea 01/11/25 05/02/25 Rx lancets 30 gauge (OneTouch #200 ea 01/11/25 05/02/25 Rx UltraSoft 2 Lancet) blood sugar diagnostic (Blood #50 ea 01/14/25 05/02/25 Rx Glucose Test strips) blood-glucose meter (OneTouch #1 ea 01/14/25 05/02/25 Rx Verio Flex Start kit) blood-glucose meter (OneTouch #1 ea 05/02/25 05/02/25 History Verio Flex Meter) pen needle, diabetic 31 gauge x #1,200 ea 05/02/25 05/02/25 History 3/16 (Ultra-Fine Pen Needle) atorvastatin 40 mg tablet 40 mg PO HS 30 days #30 tabs 05/03/25 Rx famotidine 20 mg tablet 20 mg PO BID 30 days #60 tabs 05/03/25 Rx insulin glargine 100 unit/mL (3 30 unit SQ DAILY 05/03/25 05/02/25 History mL) subcutaneous pen (Roselineagladlen Daley U-100 Insulin) lisinopril 20 1 tab PO DAILY 05/03/25 05/03/25 History mg-hydrochlorothiazide 25 mg tablet metformin 500 mg tablet,extended 1,000 mg PO BID 05/03/25 05/03/25 History release 24 hr metoprolol succinate 25 mg 25 mg PO DAILY 30 days #30 tabs 05/03/25 Rx tablet,extended release 24 hr omeprazole 40 mg capsule,delayed 40 mg PO DAILY 05/03/25 05/03/25 History release risperidone 1 mg tablet 1 mg PO DAILY 05/03/25 05/03/25 History New Prescriptions to Start Prescriptions: Dave Greene famotidine Dave Valle metoprolol succinate Dave Valle Allergies Allergy/AdvReac Type Severity Reaction Status Date / Time No Known Allergies Allergy Verified 05/02/25 14:58 Assessment and Plan *Assessment and plan (1) Chest pain: Problem Comment: Unstable angina Status: Acute Category: Medical Code(s): R07.9 - Chest pain, unspecified (2) GERD (gastroesophageal reflux disease): Status: Acute Category: Medical Code(s): K21.9 - Gastro-esophageal reflux disease without esophagitis (3) Coronary artery disease: Status: Acute Category: Medical Code(s): I25.10 - Atherosclerotic heart disease of [place] coronary artery without angina pectoris Plan Chest Pain Unspecified - unclear etiology but symptoms resolving - ACS and PE ruled out - recommend f/u with PCP for consideration of GI etiologies Multivessel CAD - New diagnosis this admission per left heart cath - LHC-60% LAD, several other scattered 20-30% lesions. - Discussed this with patient at length, continue aggressive risk factor modification, add aspirin 81 mg daily HLD - cont statin IDDM - well controlled - consider GLP-1 later Htn - well controlled - cont home meds CV stable for discharge on home meds with addition of ASA. F/u with PCP post discharge. F/u with Cardiolog[facility] 2 weeks.
--- NOTE | 2025-05-04 14:10 | CARE MANAGER ---
Spoke with patient related to hospital discharge. He is aware of medication changes. He is also aware of follow up appointments. Denies questions or concerns.
== END 2025-05-03 11:00 | disposition home or self-care (01) ==
PROVIDERS: Admitting Provider Internal Medicine; PCP Internal Medicine; Visit Provider Student in an Organized Health Care Education/Training Program
PROC: 4A023N7 Measurement of Cardiac Sampling and Pressure, Left Heart, Percutaneous Approach (ICD-10-PCS; CPT 93452; principal; 2025-05-02 15:20)
DX: I25.110 Atherosclerotic heart disease of native coronary artery with unstable angina pectoris (principal); I10 Essential (primary) hypertension; R07.9 Chest pain, unspecified; K21.9 Gastro-esophageal reflux disease without esophagitis; E11.9 Type 2 diabetes mellitus without complications; G47.33 Obstructive sleep apnea (adult) (pediatric); F39 Unspecified mood [affective] disorder; Z23 Encounter for immunization; Z79.4 Long term (current) use of insulin; Z79.84 Long term (current) use of oral hypoglycemic drugs; Z79.82 Long term (current) use of aspirin; Z79.899 Other long term (current) drug therapy; Z82.49 Family history of ischemic heart disease and other diseases of the circulatory system
CPT/HCPCS: 36415; 71275; 80048; 80053; 80061; 82962; 83036; 83735; 84443; 84484; 85025; 90471; 90732; 93306; 93458; 99152; C1769; C1887; G0009; G0378; J1200; J1644; J1650; J2003; J2250; J3010; J3475; J7040; Q9967